=== PATIENT | female | born 1945 | race Caucasian/White ===

== ENCOUNTER 2016-09-07 13:50 | Observation (INO) | payer MEDICARE ==
[2016-09-07] MEDS ORDERED: SODIUM CHLORIDE 0.9% 1,000 ML IV STA (14:06)
--- NOTE | 2016-09-07 14:12 | ED ---
General Adult HPI - General Chief complaint: Shortness of Breath Stated complaint: FB in throat Time Seen by Provider: 09/07/16 13:55 Source: patient, EMS, RN notes reviewed Mode of arrival: EMS Limitations: no limitations - History of Present Illness Initial comments: Patient is a pleasant 71-year-old female presenting to the emergency department with concerns for aspirating a piece of ham. Patient was eating omelette about a half an hour ago. Patient had difficulty with swallowing and believe she aspirated the hand. Patient does complain of cough and a fullness sensation in her lower throat/upper chest. Patient does hear some wheezing which is not normal for her. Patient has had bronchitis otherwise has no history of wheezing. Patient was able to swallow liquids following this without difficulty. - Related Data Home Medications Medication Instructions Recorded Confirmed Atenolol [Tenormin] 50 mg PO DAILY 09/01/15 09/07/16 Atorvastatin Calcium [Lipitor] 20 mg PO DAILY 09/01/15 09/07/16 Cholecalciferol [Vitamin D3] 1,000 unit PO DAILY 09/01/15 09/07/16 Multivitamins, Thera [Multivitamin] 1 tab PO DAILY 09/01/15 09/07/16 Torsemide [Demadex] 5 mg PO DAILY 09/01/15 09/07/16 Vit C/E/Zn/Coppr/Lutein/Zeaxan 1 cap PO BID 09/01/15 09/07/16 [Preservision Areds 2 Softgel] Zolpidem [Ambien] 10 mg PO HS PRN 09/01/15 09/07/16 Aspirin EC [Ecotrin Low Dose] 81 mg PO DAILY 09/07/16 09/07/16 Biotin 5 mg PO DAILY 09/07/16 09/07/16 Calcium Carbonate [Calcium] 600 mg PO HS 09/07/16 09/07/16 Allergies Allergy/AdvReac Type Severity Reaction Status Date / Time No Known Allergies Allergy Verified 09/07/16 14:29 Review of Systems ROS Statement: Those systems with pertinent positive or pertinent negative responses have been documented in the HPI. ROS Other: All systems not noted in ROS Statement are negative. Constitutional: Denies: fever Eyes: Denies: eye pain ENT: Reports: throat pain. Denies: ear pain Respiratory: Reports: dyspnea, wheezes Cardiovascular: Denies: palpitations Endocrine: Denies: fatigue Gastrointestinal: Denies: abdominal pain Genitourinary: Denies: dysuria Musculoskeletal: Denies: back pain Skin: Denies: rash Neurological: Denies: weakness Past Medical History Past Medical History: Hyperlipidemia, Hypertension Additional Past Medical History / Comment(s): kidney stones History of Any Multi-Drug Resistant Organisms: None Reported Additional Past Surgical History / Comment(s): left achilles tendon, eye lid lift Past Psychological History: No Psychological Hx Reported Smoking Status: Never smoker Past Alcohol Use History: Occasional Past Drug Use History: None Reported General Exam Limitations: no limitations General appearance: alert, in no apparent distress Head exam: Present: atraumatic Eye exam: Present: normal appearance, PERRL ENT exam: Present: normal oropharynx Neck exam: Present: normal inspection Respiratory exam: Present: wheezes (Inspiratory wheezes right greater than left) Cardiovascular Exam: Present: regular rate, normal rhythm GI/Abdominal exam: Present: soft. Absent: tenderness Extremities exam: Present: normal inspection. Absent: pedal edema, calf tenderness Neurological exam: Present: alert Psychiatric exam: Present: normal affect, normal mood Skin exam: Absent: rash Course Vital Signs 09/07/16 09/07/16 09/07/16 13:57 14:05 14:48 Temperature 98.4 F Pulse Rate 85 77 Respiratory 16 16 15 Rate Blood Pressure 234/102 206/93 O2 Sat by Pulse 96 95 Oximetry Medical Decision Making - Medical Decision Making Patient reexamined and is somewhat improved. Cough has improved. Patient still has continued wheezing although it remains somewhat mild. Still was a right side. Case was discussed in detail with Dr. Watt from pulmonary who will consult. Case also discussed with Dr. Gomes, who will admit for Dr. Santo - Lab Data Result diagrams: 09/07/16 14:11 09/07/16 14:11 Lab Results 09/07/16 09/07/16 09/07/16 Range/Units 14:11 14:11 14:11 WBC 5.5 (3.8-10.6) k/uL RBC 5.31 (3.80-5.40) m/uL Hgb 16.3 H (11.4-16.0) gm/dL Hct 46.4 H (34.0-46.0) % MCV 87.3 (80.0-100.0) fL MCH 30.7 (25.0-35.0) pg MCHC 35.2 (31.0-37.0) g/dL RDW 13.1 (11.5-15.5) % Plt Count 176 (150-450) k/uL Neutrophils % 57 % Lymphocytes % 31 % Monocytes % 5 % Eosinophils % 3 % Basophils % 0 % Neutrophils # 3.2 (1.3-7.7) k/uL Lymphocytes # 1.7 (1.0-4.8) k/uL Monocytes # 0.3 (0-1.0) k/uL Eosinophils # 0.2 (0-0.7) k/uL Basophils # 0.0 (0-0.2) k/uL PT 10.9 (9.0-12.0) sec INR 1.1 (<1.1) APTT 25.1 (22.0-30.0) sec Sodium 142 (137-145) mmol/L Potassium 3.9 (3.5-5.1) mmol/L Chloride 102 (98-107) mmol/L Carbon Dioxide 27 (22-30) mmol/L Anion Gap 13 mmol/L BUN 17 (7-17) mg/dL Creatinine 0.63 (0.52-1.04) mg/dL Est GFR (MDRD) Af Amer >60 (>60 ml/min/1.73 sqM) Est GFR (MDRD) Non-Af >60 (>60 ml/min/1.73 sqM) Glucose 177 H (74-99) mg/dL Calcium 9.9 (8.4-10.2) mg/dL Total Bilirubin 1.1 (0.2-1.3) mg/dL AST 35 (14-36) U/L ALT 50 (9-52) U/L Alkaline Phosphatase 110 (38-126) U/L Total Protein 7.6 (6.3-8.2) g/dL Albumin 4.4 (3.5-5.0) g/dL - Radiology Data Radiology results: image reviewed (Chest x-ray shows no acute process) Disposition Clinical Impression: Aspiration into airway Disposition: ADMITTED IP TO THIS HOSP
--- NOTE | 2016-09-07 14:27 | XR ---
EXAMINATION TYPE: XR chest 2V DATE OF EXAM: 09/07/2016 2:22 PM COMPARISON: NONE INDICATION: Difficulty breathing TECHNIQUE: Single frontal view of the chest is obtained. FINDINGS: The heart size is normal. The pulmonary vasculature is normal. The lungs are clear. IMPRESSION: 1. No acute pulmonary process.
[2016-09-07] MEDS ORDERED: ATENOLOL 25 MG TAB PO STA (14:32)
[2016-09-07 14:47] LABS: Basophils % (A) 0 %; CH 31.7; CHCM 36.5; Eosinophils # (A) 0.2 k/uL (0-0.7); Eosinophils % (A) 3 %; HCT 46.4 % (34.0-46.0); HDW 3.06; HGB 16.3 gm/dL (11.4-16.0); Luc % (Auto) 4; Lymphocytes # (A) 1.7 k/uL (1.0-4.8); Lymphocytes % (A) 31 %; MCH 30.7 pg (25.0-35.0); MCHC 35.2 g/dL (31.0-37.0); MCV 87.3 fL (80.0-100.0); Mean Platelet Volume 7.4; Monocytes # (A) 0.3 k/uL (0-1.0); Monocytes % (A) 5 %; Neutrophils # (A) 3.2 k/uL (1.3-7.7); Neutrophils % (A) 57 %; RBC 5.31 m/uL (3.80-5.40); RDW 13.1 % (11.5-15.5); WBC 5.5 k/uL (3.8-10.6); WBC (Perox) 5.67
[2016-09-07 14:48] LABS: ALT 50 U/L (9-52); AST 35 U/L (14-36); Alkaline Phosphatase 110 U/L (38-126); Anion Gap 13 mmol/L; Blood Urea Nitrogen 17 mg/dL (7-17); Calcium 9.9 mg/dL (8.4-10.2); Carbon Dioxide 27 mmol/L (22-30); Chloride 102 mmol/L (98-107); Glucose 177 mg/dL (74-99); Non-African American GFR(MDRD) >60 (>60 ml/min/1.73 sqM); Potassium 3.9 mmol/L (3.5-5.1); Sodium 142 mmol/L (137-145); Total Bilirubin 1.1 mg/dL (0.2-1.3); Total Protein 7.6 g/dL (6.3-8.2)
[2016-09-07 14:49] LABS: INR 1.1 (<1.1); Partial Thromboplastin Time 25.1 sec (22.0-30.0); Prothrombin Time 10.9 sec (9.0-12.0)
[2016-09-07] MEDS ORDERED: NALOXONE 0.4 MG/ML 1 ML VIAL IV PRN (15:41)
[2016-09-07] MEDS ORDERED: hydrALAZINE HCL 20 MG/ML 1 ML VIAL IVP STA (15:58)
[2016-09-07] MEDS: SODIUM CHLORIDE 0.9% 1,000 ML IV SCH (16:05)
[2016-09-07] MEDS ORDERED: ZOLPIDEM 10 MG TAB PO PRN (16:30)
--- NOTE | 2016-09-07 18:14 | HP ---
DATE OF ADMISSION: 09/07/2016 Patient is a 71 -year-old came in after ( ). The patient was at ( ) and was eating cheese and ham and she believes she may have aspirated. The patient denied any shortness of breath. The patient was ( ) a little bit which is not normal for her. A chest x-ray essentially within normal limits. The patient was started on antibiotics and admitted to observation under my service although I evaluated the patient in the ER. The patient is hemodynamically stable at this point of time. Patient does not have ( ). Minimal wheeze because of which I recommend discharge the patient but the patient blood pressures are elevated. Because of which, we will check the blood pressure ( ) if the patient's blood pressure continues to be elevated. Patient will be admitted to the hospital and if the patient is admitted, we will get evaluation from pulmonary if bronchoscopy is needed. Patient has fairly good dentures without any dental abscess or dental abnormalities. Patient is although coughing at this point of time. REVIEW OF SYSTEMS: CONSTITUTIONAL: No fever, no malaise, no fatigue. HEENT: No recent visual problems or hearing problems. Denied any sore throat. CARDIOVASCULAR: No chest pain, orthopnea, PND, no palpitations, no syncope. PULMONARY: As described in HPI. GASTROINTESTINAL: No diarrhea, no nausea, no vomiting, no abdominal pain. Normoactive bowel sounds. NEUROLOGICAL: No headaches, no weakness, no numbness. HEMATOLOGICAL: Denies any bleeding or petechiae. GENITOURINARY: Denies any burning micturition, frequency, or urgency. MUSCULOSKELETAL/RHEUMATOLOGICAL: Denies any joint pain, swelling, or any muscle pain. ENDOCRINE: Denies any polyuria or polydipsia. The rest of the 14 point review of systems is negative. Home medications include: 1. Atenolol. 2. Atorvastatin. 3. Cholecalciferol. 4. Vitamin D. 5. Demadex. 6. Ambien. 7. Aspirin. 8. Biotin, 9. Calcium carbonate. ALLERGIES: No known drug allergies. PAST MEDICAL HISTORY: Significant for hypertension, hyperlipidemia, kidney stones in the past. SOCIAL HISTORY: Denied any smoking, alcohol abuse or any drug abuse. FAMILY HISTORY: Denied any family history of hypertension, diabetes mellitus or coronary artery disease in the family. PHYSICAL EXAMINATION: VITAL SIGNS: Temperature 98.4, pulse rate of 85, respiratory rate 16, blood pressure is 234/102, saturating at 95% on room air. GENERAL: The patient is alert and oriented x3, not in any acute distress. Well developed, well nourished. HEENT: Pupils are round and equally reacting to light. EOMI. No scleral icterus. No conjunctival pallor. Normocephalic, atraumatic. No pharyngeal erythema. No thyromegaly. CARDIOVASCULAR: S1 and S2 present. No murmurs, rubs, or gallops. PULMONARY: Minimal expiratory wheezing bilaterally with no crackles are appreciated. ABDOMEN: Soft, nontender, nondistended, normoactive bowel sounds. No palpable organomegaly. MUSCULOSKELETAL: No joint swelling or deformity. EXTREMITIES: No cyanosis, clubbing, or pedal edema. NEUROLOGICAL: Gross neurological examination did not reveal any focal deficits. SKIN: No rashes. LABORATORY DATA: CBC, and BMP are abnormal for elevated hemoglobin of 16.3, chest x-rays within normal limits. ASSESSMENT AND PLAN: 1. Episode of aspiration. I do not believe patient will need antibiotics. Patient is admitted. We will pulmonary ( ) for possible bronchoscopy. Patient will use albuterol for her breathing. Patient denied any history of asthma. Bronchospasm is probably related to aspiration. 2. Highly elevated blood pressures. We will check her blood pressures appropriately and depending on appropriate measurement of blood pressure, we will decide on the treatment although patient will be initiated back on her home medications ( ) staying here. 3. Hyperlipidemia. Continue her home medications.
[2016-09-07 18:37] VITALS: BMI 37.8
[2016-09-07] MEDS: PIPERACILLIN-TAZOBACTAM 3.375 GM in DEXTROSE/WATER 1 50ML.BAG IVPB SCH ×2 (18:42→23:23)
[2016-09-07] MEDS ORDERED: ACETAMINOPHEN TAB 325 MG TAB PO PRN (19:49)
[2016-09-08] MEDS: SODIUM CHLORIDE 0.9% 1,000 ML IV SCH (03:32)
[2016-09-08 06:34] VITALS: RESP 18
--- NOTE | 2016-09-08 08:16 | XR ---
EXAMINATION TYPE: XR chest 2V DATE OF EXAM: 09/08/2016 7:00 AM HISTORY: Dyspnea. REFERENCE: Previous study dated 09/07/2016. FINDINGS: The heart is mildly enlarged. The lungs are clear. Pleural spaces are clear. IMPRESSION: MILD CARDIOMEGALY.
[2016-09-08] MEDS: PIPERACILLIN-TAZOBACTAM 3.375 GM in DEXTROSE/WATER 1 50ML.BAG IVPB SCH (08:32)
[2016-09-08] MEDS ORDERED: FUROSEMIDE 10 MG TAB PO SCH (09:00)
[2016-09-08] MEDS ORDERED: PANTOPRAZOLE 40 MG/10 ML VIAL IV SCH (09:00)
[2016-09-08] MEDS ORDERED: ATENOLOL 50 MG TAB PO SCH (09:00)
[2016-09-08] MEDS ORDERED: ATORVASTATIN 20 MG TAB PO SCH (09:00)
[2016-09-08] MEDS ORDERED: ASPIRIN 81 MG CHEW PO SCH (09:00)
--- NOTE | 2016-09-08 10:32 | P.CNPUL ---
History of Present Illness Consult date: 09/08/16 Reason for consult: dyspnea, cough, other Chief complaint: Possible aspiration History of present illness: This is a 71-year-old female who sees Dr. Pieter Garcia. Apparently was eating breakfast yesterday at [employer] and apparently thought maybe she aspirated a small amount of egg. She apparently had some difficulty breathing and so forth initially coughed a bit. EMS was called. She was brought to the emergency department she was evaluated by Dr. Matt. He was admitted to the hospital for possible aspiration. Currently doing relatively well. Minimal cough. She states she is really pretty feeling pretty well. No major complaints at this time. Not coughing up any phlegm no blood. No fever no chills. No difficulty breathing or anything like that. She apparently has a history of hypertension hyperlipidemia acute bronchitis episodes but no history of any chronic lung disease kidney stones. Again she is a lifelong nonsmoker. Review of Systems A 12 point review of system is positive for minimal cough. She is not feeling short of breath or having any significant respiratory issues. No hemoptysis. No fever no chills. The rest of the 12 point review of system is unremarkable. 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 History of Any Multi-Drug Resistant Organisms: None Reported Additional Past Surgical History / Comment(s): left achilles tendon repair, eye lid lift Past Anesthesia/Blood Transfusion Reactions: No Reported Reaction Past Psychological History: No Psychological Hx Reported Smoking Status: Never smoker Past Alcohol Use History: Occasional Past Drug Use History: None Reported Medications and Allergies Home Medications Medication Instructions Recorded Confirmed Type Atenolol [Tenormin] 50 mg PO DAILY 09/01/15 09/07/16 History Atorvastatin Calcium [Lipitor] 20 mg PO DAILY 09/01/15 09/07/16 History Cholecalciferol [Vitamin D3] 1,000 unit PO DAILY 09/01/15 09/07/16 History Multivitamins, Thera [Multivitamin] 1 tab PO DAILY 09/01/15 09/07/16 History Torsemide [Demadex] 5 mg PO DAILY 09/01/15 09/07/16 History Vit C/E/Zn/Coppr/Lutein/Zeaxan 1 cap PO BID 09/01/15 09/07/16 History [Preservision Areds 2 Softgel] Zolpidem [Ambien] 10 mg PO HS PRN 09/01/15 09/07/16 History Aspirin EC [Ecotrin Low Dose] 81 mg PO DAILY 09/07/16 09/07/16 History Biotin 5 mg PO DAILY 09/07/16 09/07/16 History Calcium Carbonate [Calcium] 600 mg PO HS 09/07/16 09/07/16 History Allergies Allergy/AdvReac Type Severity Reaction Status Date / Time No Known Allergies Allergy Verified 09/07/16 14:29 Physical Exam Osteopathic Statement: *. No significant issues noted on an osteopathic structural exam other than those noted in the History and Physical/Consult. Vitals: Vital Signs Temp Pulse Pulse Resp BP BP BP 09/08/16 08:00 67 18 09/08/16 07:40 98 F 67 18 198/81 09/08/16 04:00 68 18 196/84 09/08/16 03:45 68 16 09/08/16 00:00 72 16 166/62 09/07/16 20:00 98.7 F 68 16 188/78 198/78 09/07/16 18:45 76 18 09/07/16 17:45 98.4 F 76 18 219/96 09/07/16 17:05 71 15 160/90 09/07/16 15:55 73 16 210/90 Pulse Ox 09/08/16 08:00 09/08/16 07:40 100 09/08/16 04:00 98 09/08/16 03:45 09/08/16 00:00 95 09/07/16 20:00 95 09/07/16 18:45 09/07/16 17:45 96 09/07/16 17:05 97 09/07/16 15:55 97 Intake and Output 09/07/16 09/08/16 09/08/16 22:59 06:59 14:59 Intake Total 200 250 Balance 200 250 Intake: Intake, IV Titration 50 50 Amount Piperacillin-Tazobactam 3 50 50 .375 gm In Dextrose/Water 1 50ml.bag @ 12.5 mls/hr IVPB Q8HR [facility] Rx#: [id number] Oral 150 200 Other: Voiding Method Toilet Toilet Toilet # Voids 1 2 Weight 93.9 kg No acute distress, oriented 3. HEENT examination is grossly unremarkable. Mucous membranes are moist. There are no oral lesions. Neck supple. Full range of motion. No adenopathy. No thyromegaly. Neck veins are flat. No stridor. Cardiovascular examination reveals regular rhythm rate. S1-S2 normal. No S3- S4 or murmur. Lungs reveal a few scattered very mild expiratory wheezes. No rhonchi. Breath sounds equal bilaterally. Abdomen soft bowel sounds are heard. Extremities are intact. Results - Laboratory Findings CBC and BMP: 09/07/16 14:11 09/07/16 14:11 PT/INR, D-dimer PT 10.9 sec (9.0-12.0) 09/07/16 14:11 INR 1.1 (<1.1) 09/07/16 14:11 - Diagnostic Findings Chest x-ray: image reviewed (Both chest x-rays appeared normal.) Assessment and Plan (1) Aspiration into airway Status: Acute Plan: Plan This 71-year-old female was doing well. From my perspective she can be discharged home. Really does not need any antibiotics recently. No need for bronchoscopy at this time. She should follow-up with her primary doctor. She should develop any respiratory complaints, she should come back to the emergency department. Again no additional recommendations are made. Her chest x-rays were normal 2. Time with Patient: Greater than 30
[2016-09-08 11:53] VITALS: BP 174/92; PULSE 65; TEMP 98.9
--- NOTE | 2016-09-09 11:32 | DS ---
DATE OF ADMISSION: 09/07/2016 DATE OF DISCHARGE: 09/08/2016 The patient is a 71-year-old admitted secondary to an aspiration of food into the bronchus. Patient has minimal wheezing. I will go ahead and give her a Medrol Dosepak short course for any inflammation secondary to the food particles. Patient will not need an antibiotic. Patient has elevated blood pressures. I asked her to check her blood pressure at home and I counseled her regarding the appropriate way to check the blood pressure and take is to primary doctor, Dr. Santo, who can make the decision according to her home blood pressure monitoring whether to start her on new antihypertensives or not. Apart from Medrol Dosepak, no other changes in medications are being made and patient was seen and examined on the day of discharge. Vitals are stable. PHYSICAL EXAMINATION: GENERAL: The patient is alert and oriented x3, not in any acute distress. Well developed, well nourished. HEENT: Pupils are round and equally reacting to light. EOMI. No scleral icterus. No conjunctival pallor. Normocephalic, atraumatic. No pharyngeal erythema. No thyromegaly. CARDIOVASCULAR: S1 and S2 present. No murmurs, rubs, or gallops. LUNG EXAMINATION: Minimal wheeze in the right lower lung field, that is where probably the aspirated food particle may have went. ABDOMEN: Soft, nontender, nondistended, normoactive bowel sounds. No palpable organomegaly. MUSCULOSKELETAL: No joint swelling or deformity. EXTREMITIES: No cyanosis, clubbing, or pedal edema. NEUROLOGICAL: Gross neurological examination did not reveal any focal deficits. SKIN: No rashes. ASSESSMENT AND PLAN: 1. An episode of aspiration. 2. Hypertension. 3. Hyperlipidemia. PLAN: As mentioned above, patient was seen and examined on the day of discharge. Vitals are stable. Patient will follow with Dr. Pieter Santo in about 3 to 7 days. Activity as tolerated. Cardiac diet.
== END 2016-09-08 14:15 | disposition home or self-care (01) ==
LOC: EC 13:50 → 3OBS 15:41
PROVIDERS: ADMIT Internal Medicine; ATTEND Internal Medicine
DX: T17.520A Food in bronchus causing asphyxiation, initial encounter (principal); J98.01 Acute bronchospasm; X58.XXXA Exposure to other specified factors, initial encounter; E78.5 Hyperlipidemia, unspecified; I10 Essential (primary) hypertension; Z79.899 Other long term (current) drug therapy; Z79.82 Long term (current) use of aspirin
CPT/HCPCS: 36415; 80053; 85025; 85610; 85730; 71020 ×2; 99285; 96375; 96361 ×2; G0378 ×2; J0360; J2543 ×2; C9113; 96365; 96366

== ENCOUNTER 2016-11-03 10:23 | Inpatient (IN) | payer MEDICARE ==
--- NOTE | 2016-11-03 10:57 | ED ---
General Adult HPI - General Chief complaint: Shortness of Breath Stated complaint: AFIB, SOB Time Seen by Provider: 11/03/16 10:31 Source: patient, family, RN notes reviewed Mode of arrival: wheelchair Limitations: no limitations - History of Present Illness Initial comments: Patient is a pleasant 71-year-old female presenting to the emergency department complaining of cough. Symptoms been present for several days. Patient went to [facility] where they were concerned about atrial flutter and advise patient come to the emergency Department. No history of atrial flutter previously. Patient does have a family history of heart disease. Patient does have some shortness of breath with exertion only. No chest pain. No palpitations. Cough with occasional yellow sputum. No fever. - Related Data Home Medications Medication Instructions Recorded Confirmed Atenolol [Tenormin] 50 mg PO DAILY 09/01/15 11/03/16 Atorvastatin Calcium [Lipitor] 10 mg PO DAILY 09/01/15 11/03/16 Multivitamins, Thera [Multivitamin] 1 tab PO DAILY 09/01/15 11/03/16 Vit C/E/Zn/Coppr/Lutein/Zeaxan 1 cap PO BID 09/01/15 11/03/16 [Preservision Areds 2 Softgel] Aspirin EC [Ecotrin Low Dose] 81 mg PO DAILY 09/07/16 11/03/16 Biotin 5 mg PO DAILY 09/07/16 11/03/16 Albuterol Sulfate [Proair Hfa] 2 puff INHALATION RT-Q6H PRN 11/03/16 11/03/16 Calcium Carbonate/Vitamin D3 1 tab PO DAILY 11/03/16 11/03/16 [Calcium 600-Vit D3 200 Tablet] Carboxymethylcellulose Sodium 1 drop BOTH EYES DAILY PRN 11/03/16 11/03/16 [Refresh Tears] Fluticasone Nasal [place] [Flonase 2 spr EA NOSTRIL DAILY 11/03/16 11/03/16 Nasal [place]] Torsemide [Demadex] 20 mg PO DAILY 11/03/16 11/03/16 traZODone HCL 50 mg PO HS PRN 11/03/16 11/03/16 Allergies Allergy/AdvReac Type Severity Reaction Status Date / Time No Known Allergies Allergy Verified 11/03/16 11:10 Review of Systems ROS Statement: Those systems with pertinent positive or pertinent negative responses have been documented in the HPI. ROS Other: All systems not noted in ROS Statement are negative. Constitutional: Denies: fever Eyes: Denies: eye pain ENT: Denies: ear pain Respiratory: Reports: cough, dyspnea Cardiovascular: Denies: chest pain, palpitations Endocrine: Denies: fatigue Gastrointestinal: Denies: abdominal pain Genitourinary: Denies: dysuria Musculoskeletal: Denies: back pain Skin: Denies: rash Neurological: Denies: weakness 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 History of Any Multi-Drug Resistant Organisms: None Reported Additional Past Surgical History / Comment(s): left achilles tendon repair, eye lid lift Past Anesthesia/Blood Transfusion Reactions: No Reported Reaction Past Psychological History: No Psychological Hx Reported Smoking Status: Never smoker Past Alcohol Use History: Occasional Past Drug Use History: None Reported General Exam Limitations: no limitations General appearance: alert, in no apparent distress Head exam: Present: atraumatic Eye exam: Present: normal appearance, PERRL ENT exam: Present: normal oropharynx Neck exam: Present: normal inspection Respiratory exam: Present: rales (Mild bilateral bases) Cardiovascular Exam: Present: irregular rhythm Expanded Peripheral pulses: 2+: Radial (R), Radial (L), Posterior Tibialis (R), Posterior Tibialis (L) GI/Abdominal exam: Present: soft. Absent: tenderness Extremities exam: Present: normal inspection. Absent: pedal edema, calf tenderness Neurological exam: Present: alert Psychiatric exam: Present: normal affect, normal mood Skin exam: Absent: rash Course Vital Signs 11/03/16 11/03/16 11/03/16 10:34 11:30 12:59 Temperature 97.7 F 97.1 F L Pulse Rate 103 H 96 97 Respiratory 20 18 18 Rate Blood Pressure 153/85 160/94 159/97 O2 Sat by Pulse 95 95 96 Oximetry 11/03/16 13:36 Temperature Pulse Rate 144 H Respiratory 20 Rate Blood Pressure 145/97 O2 Sat by Pulse 95 Oximetry - Reevaluation(s) Reevaluation #1: 11/03/16 13:55 EKG #2 shows tachycardia at 146 with narrow complex. QRS 86. QT 314. QTC 489. Normal axis. Normal QRS. No acute ST change. EKG Findings - EKG Comments: EKG Findings:: Atrial flutter with rate of 85. QRS 98. QT 348. QTC 414. Normal axis. Normal QRS. Normal ST-T. Medical Decision Making - Medical Decision Making Patient reevaluated and updated several times. Heart rate has now increased to 146. Patient was considering refusing admission however is now agreeable. Case discussed in detail with Dr. Perdue, who will admit for Dr. Beckett,. Patient will need to be started on Cardizem for tachycardia with atrial fibrillation. IV heparin will also be started for anticoagulation. Cardiology will be consulted. Admission orders written. - Lab Data Result diagrams: 11/03/16 11:02 11/03/16 11:02 Lab Results 11/03/16 11/03/16 11/03/16 Range/Units 11:02 11:02 11:02 WBC 6.5 (3.8-10.6) k/uL RBC 4.83 (3.80-5.40) m/uL Hgb 15.2 (11.4-16.0) gm/dL Hct 42.8 (34.0-46.0) % MCV 88.6 (80.0-100.0) fL MCH 31.4 (25.0-35.0) pg MCHC 35.4 (31.0-37.0) g/dL RDW 13.6 (11.5-15.5) % Plt Count 176 (150-450) k/uL Neutrophils % 66 % Lymphocytes % 24 % Monocytes % 6 % Eosinophils % 2 % Basophils % 0 % Neutrophils # 4.3 (1.3-7.7) k/uL Lymphocytes # 1.5 (1.0-4.8) k/uL Monocytes # 0.4 (0-1.0) k/uL Eosinophils # 0.1 (0-0.7) k/uL Basophils # 0.0 (0-0.2) k/uL PT (9.0-12.0) sec INR (<1.1) APTT (22.0-30.0) sec Sodium 138 (137-145) mmol/L Potassium 3.7 (3.5-5.1) mmol/L Chloride 100 (98-107) mmol/L Carbon Dioxide 26 (22-30) mmol/L Anion Gap 12 mmol/L BUN 16 (7-17) mg/dL Creatinine 0.63 (0.52-1.04) mg/dL Est GFR (MDRD) Af Amer >60 (>60 ml/min/1.73 sqM) Est GFR (MDRD) Non-Af >60 (>60 ml/min/1.73 sqM) Glucose 249 H (74-99) mg/dL Calcium 9.9 (8.4-10.2) mg/dL Magnesium 1.8 (1.6-2.3) mg/dL Total Bilirubin 1.3 (0.2-1.3) mg/dL AST 53 H (14-36) U/L ALT 61 H (9-52) U/L Alkaline Phosphatase 97 (38-126) U/L Total Creatine Kinase 45 (30-135) U/L CK-MB (CK-2) <0.2 (0.0-2.4) ng/mL CK-MB (CK-2) Rel Index Troponin I <0.012 (0.000-0.034) ng/mL NT-Pro-B Natriuret Pep pg/mL Total Protein 6.6 (6.3-8.2) g/dL Albumin 3.9 (3.5-5.0) g/dL TSH 0.079 L (0.465-4.680) mIU/L Free T4 1.29 (0.78-2.19) ng/dL Free T3 pg/mL 4.0 (2.8-5.3) pg/ml 11/03/16 11/03/16 Range/Units 11:02 11:02 WBC (3.8-10.6) k/uL RBC (3.80-5.40) m/uL Hgb (11.4-16.0) gm/dL Hct (34.0-46.0) % MCV (80.0-100.0) fL MCH (25.0-35.0) pg MCHC (31.0-37.0) g/dL RDW (11.5-15.5) % Plt Count (150-450) k/uL Neutrophils % % Lymphocytes % % Monocytes % % Eosinophils % % Basophils % % Neutrophils # (1.3-7.7) k/uL Lymphocytes # (1.0-4.8) k/uL Monocytes # (0-1.0) k/uL Eosinophils # (0-0.7) k/uL Basophils # (0-0.2) k/uL PT 11.0 (9.0-12.0) sec INR 1.1 (<1.1) APTT 23.6 (22.0-30.0) sec Sodium (137-145) mmol/L Potassium (3.5-5.1) mmol/L Chloride (98-107) mmol/L Carbon Dioxide (22-30) mmol/L Anion Gap mmol/L BUN (7-17) mg/dL Creatinine (0.52-1.04) mg/dL Est GFR (MDRD) Af Amer (>60 ml/min/1.73 sqM) Est GFR (MDRD) Non-Af (>60 ml/min/1.73 sqM) Glucose (74-99) mg/dL Calcium (8.4-10.2) mg/dL Magnesium (1.6-2.3) mg/dL Total Bilirubin (0.2-1.3) mg/dL AST (14-36) U/L ALT (9-52) U/L Alkaline Phosphatase (38-126) U/L Total Creatine Kinase (30-135) U/L CK-MB (CK-2) (0.0-2.4) ng/mL CK-MB (CK-2) Rel Index Troponin I (0.000-0.034) ng/mL NT-Pro-B Natriuret Pep 277 pg/mL Total Protein (6.3-8.2) g/dL Albumin (3.5-5.0) g/dL TSH (0.465-4.680) mIU/L Free T4 (0.78-2.19) ng/dL Free T3 pg/mL (2.8-5.3) pg/ml - Radiology Data Radiology results: image reviewed (Chest x-ray shows no acute process.) Critical Care Time Critical Care Time: Yes Total Critical Care Time: 35 Disposition Clinical Impression: Atrial flutter with rapid ventricular response Disposition: ADMITTED IP TO THIS HOSP
[2016-11-03 11:16] LABS: Basophils % (A) 0 %; CH 31.5; CHCM 35.7; Eosinophils # (A) 0.1 k/uL (0-0.7); Eosinophils % (A) 2 %; HCT 42.8 % (34.0-46.0); HDW 3.23; HGB 15.2 gm/dL (11.4-16.0); Luc # (Auto) 0.17; Luc % (Auto) 3; Lymphocytes # (A) 1.5 k/uL (1.0-4.8); Lymphocytes % (A) 24 %; MCH 31.4 pg (25.0-35.0); MCHC 35.4 g/dL (31.0-37.0); MCV 88.6 fL (80.0-100.0); Mean Platelet Volume 7.8; Monocytes # (A) 0.4 k/uL (0-1.0); Monocytes % (A) 6 %; Neutrophils # (A) 4.3 k/uL (1.3-7.7); Neutrophils % (A) 66 %; RBC 4.83 m/uL (3.80-5.40); RDW 13.6 % (11.5-15.5); WBC 6.5 k/uL (3.8-10.6); WBC (Perox) 6.52
--- NOTE | 2016-11-03 11:20 | XR ---
EXAMINATION TYPE: XR chest 2V DATE OF EXAM: 11/03/2016 11:17 AM COMPARISON: NONE TECHNIQUE: PA and lateral views submitted. HISTORY: cough FINDINGS: The lungs are clear and there is no pneumothorax, pleural effusion, or focal pneumonia. Arthropathy of the shoulders noted. Hyperinflation suggests COPD and there is mild cardiomegaly. Mild degenerati ve change of the spine. IMPRESSION: 1. No acute process.
[2016-11-03 11:26] LABS: ALT 61 U/L (9-52); AST 53 U/L (14-36); Alkaline Phosphatase 97 U/L (38-126); Anion Gap 12 mmol/L; Blood Urea Nitrogen 16 mg/dL (7-17); Calcium 9.9 mg/dL (8.4-10.2); Carbon Dioxide 26 mmol/L (22-30); Chloride 100 mmol/L (98-107); Glucose 249 mg/dL (74-99); Magnesium 1.8 mg/dL (1.6-2.3); Non-African American GFR(MDRD) >60 (>60 ml/min/1.73 sqM); Potassium 3.7 mmol/L (3.5-5.1); Sodium 138 mmol/L (137-145); Total Bilirubin 1.3 mg/dL (0.2-1.3); Total Protein 6.6 g/dL (6.3-8.2)
[2016-11-03 11:43] LABS: INR 1.1 (<1.1); Partial Thromboplastin Time 23.6 sec (22.0-30.0)
[2016-11-03 11:54] LABS: Creatine Kinase 45 U/L (30-135)
[2016-11-03 12:07] LABS: Creatine Kinase MB <0.2 ng/mL (0.0-2.4); Troponin I <0.012 ng/mL (0.000-0.034)
[2016-11-03] MEDS ORDERED: ALPRAZolam 0.25 MG TAB PO PRN (13:57)
[2016-11-03] MEDS ORDERED: HEPARIN SODIUM,PORCINE 5,000 UNIT/ML 1 ML VIAL IV PRN (13:57)
[2016-11-03] MEDS ORDERED: HEPARIN SODIUM,PORCINE 5,000 UNIT/ML 1 ML VIAL IV ONE (13:57)
[2016-11-03] MEDS: HEPARIN SODIUM,PORCINE/D5W PMX 25,000 UNIT in DEXTROSE/WATER 1 500ML.BAG IV SCH (14:10)
[2016-11-03] MEDS: DILTIAZEM 125 MG in SODIUM CHLORIDE 0.9% 100 ML IV ONE (14:14)
[2016-11-03] MEDS ORDERED: FUROSEMIDE 10 MG/ML 2 ML VIAL IV STA (15:51)
--- NOTE | 2016-11-03 15:51 | P.CRDCN ---
History of Present Illness Consult date: 11/03/16 Requesting physician: Pieter Santo Consult reason: atrial fibrillation Chief complaint: Cough and exertional shortness of breath History of present illness: This is a pleasant 71-year-old female with history of hypertension, hyperlipidemia, borderline diabetes, who presented to the hospital from the walk -in clinic. According to the patient, she's been experiencing a hockey cough for the past few days, worse at night, and she also states that when she exerts herself physically she has noticed shortness of breath. She denies any chest discomfort, she has had no palpitations or heart racing according to her. Patient went to the walk-in clinic for evaluation of her cough, EKG was performed, patient was sent to the emergency room for admission. EKG performed in her doctor's office is unavailable, but the EKG performed on arrival here showed atrial fibrillation. Subsequent EKG showed A. fib with RVR, patient was initiated on IV heparin along with IV Cardizem. Patient denies any prior history of arrhythmias. Denies excessive caffeine intake. Blood pressure on arrival 152/80 with a heart rate of 103. Blood pressure at the time of my examination at 166/114, heart rate 140s. CBC normal. No edema 38, potassium 3.7, BUN 16, creatinine 0.6. AST on arrival 53, ALT 61. Troponin 0.012. BNP 277. TSH 0.079, free T4 1.29, Free T3 4.0. 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 History of Any Multi-Drug Resistant Organisms: None Reported Additional Past Surgical History / Comment(s): left achilles tendon repair, eye lid lift Past Anesthesia/Blood Transfusion Reactions: No Reported Reaction Past Psychological History: No Psychological Hx Reported Smoking Status: Never smoker Past Alcohol Use History: Occasional Past Drug Use History: None Reported Medications and Allergies Home Medications Medication Instructions Recorded Confirmed Type Atenolol [Tenormin] 50 mg PO DAILY 09/01/15 11/03/16 History Atorvastatin Calcium [Lipitor] 10 mg PO DAILY 09/01/15 11/03/16 History Multivitamins, Thera [Multivitamin] 1 tab PO DAILY 09/01/15 11/03/16 History Vit C/E/Zn/Coppr/Lutein/Zeaxan 1 cap PO BID 09/01/15 11/03/16 History [Preservision [place]reds 2 Softgel] Aspirin EC [Ecotrin Low Dose] 81 mg PO DAILY 09/07/16 11/03/16 History Biotin 5 mg PO DAILY 09/07/16 11/03/16 History Albuterol Sulfate [Proair Hfa] 2 puff INHALATION RT-Q6H PRN 11/03/16 11/03/16 History Calcium Carbonate/Vitamin D3 1 tab PO DAILY 11/03/16 11/03/16 History [Calcium 600-Vit D3 200 Tablet] Carboxymethylcellulose Sodium 1 drop BOTH EYES DAILY PRN 11/03/16 11/03/16 History [Refresh Tears] Fluticasone Nasal [place] [Flonase 2 spr EA NOSTRIL DAILY 11/03/16 11/03/16 History Nasal [place]] Torsemide [Demadex] 20 mg PO DAILY 11/03/16 11/03/16 History traZODone HCL 50 mg PO HS PRN 11/03/16 11/03/16 History Allergies Allergy/AdvReac Type Severity Reaction Status Date / Time No Known Allergies Allergy Verified 11/03/16 11:10 Physical Exam Vitals: Vital Signs Temp Pulse Resp BP Pulse Ox 11/03/16 14:43 97.1 F L 145 H 18 167/114 98 11/03/16 14:17 145 H 155/109 PHYSICAL EXAMINATION: HEENT: Head is atraumatic, normocephalic. Pupils equal, round. Neck is supple. There is elevated jugular venous pressure. HEART EXAMINATION: Heart S1 and S2 irregularly irregular CHEST EXAMINATION: Lungs are clear with diminished air entry to bilateral bases. ABDOMEN: Soft, obese, nontender. Bowel sounds are heard. No organomegaly noted. EXTREMITIES: 2+ peripheral pulses with trace evidence of peripheral edema and no calf tenderness noted. NEUROLOGIC patient is awake, alert and oriented -3. . Results 11/03/16 11:02 11/03/16 11:02 Current Medications Generic Name Dose Route Start Last Admin Trade Name Freq PRN Reason Stop Dose Admin Alprazolam 0.25 mg 11/03/16 13:57 Xanax PO QID PRN Anxiety Aspirin 325 mg 11/04/16 09:00 Aspirin PO DAILY JUAN Heparin Sodium (Porcine) 0 unit 11/03/16 13:57 Heparin IV Q6HR PRN Low PTT Protocol Diltiazem HCl 125 mg/ Sodium 125 mls @ 5 mls/hr 11/03/16 13:59 11/03/16 14:14 Chloride IV 11/04/16 13:58 5 mg/hr .Q24H ONE 5 mls/hr 5 MG/HR Administration Heparin Sodium/Dextrose 25,000 500 mls @ 19.95 mls/hr 11/03/16 14:00 14:10 unit/ IV Solution IV 11 units/kg/hr .Q24H JUAN 19.95 mls/hr Protocol Administration 11 UNITS/KG/HR EKG Interpretations (text) EKG shows atrial fibrillation with a rapid ventricular response. Assessment and Plan Plan: Assessment and Plan #1 atrial fibrillation with rapid ventricular response, unsure of duration. Currently on IV Cardizem and heparin drip. #2 hypertension #3 borderline diabetes #4 hyperlipidemia #5 hyperthyroidism, TSH 0.079. Untreated. Plan Will obtain an echocardiogram with Doppler study. Decrease aspirin to 81 mg daily. Resume the patient's Lipitor, Tenormin, but we will increase the dose of Tenormin to 75 mg daily. We will give the patient one time dose of 20 mg IV Lasix then reinitiate her home dose of Demadex. We'll also check to see if the patient has coverage for one of the newer anticoagulants, in the meantime continue IV heparin. Further recommendations to follow. DNP note has been reviewed, I agree with a documented findings and plan of care. Patient was seen and examined.
[2016-11-03] MEDS ORDERED: ASPIRIN 81 MG CHEW PO ONE (16:00)
[2016-11-03] MEDS: ATENOLOL 25 MG TAB PO SCH (16:27)
[2016-11-03] MEDS: TORSEMIDE 20 MG TAB PO SCH (16:28)
[2016-11-03 17:56] LABS: Creatine Kinase 46 U/L (30-135)
[2016-11-03 18:09] LABS: Creatine Kinase MB 1.2 ng/mL (0.0-2.4); Troponin I <0.012 ng/mL (0.000-0.034)
[2016-11-03] MEDS ORDERED: ALBUTEROL NEBULIZED 2.5 MG/3 ML INHALATION PRN (18:42)
[2016-11-03] MEDS ORDERED: ARTIFICIAL TEARS-HYPROMELLOSE DROPS 15 ML BTL BOTH EYES PRN (18:42)
--- NOTE | 2016-11-03 19:31 | US ---
EXAMINATION TYPE: US venous doppler duplex LE BI DATE OF EXAM: 11/03/2016 6:44 PM COMPARISON: NONE CLINICAL HISTORY: dvt. Bilateral leg swelling, no history of DVT per patient. currently taking blood thinners- per patient SIDE PERFORMED: Bilateral TECHNIQUE: The lower extremity deep venous system is examined utilizing real time linear array sonog paddy with graded compression, doppler sonography and color-flow sonography. VESSELS IMAGED: External Iliac Vein (EIV) Common Femoral Vein Deep Femoral Vein Greater Saphenous Vein * Femoral Vein Popliteal Vein Small Saphenous Vein * Proximal Calf Veins (* superficial vessels) Right Leg: Negative for DVT Left Leg: Negative for DVT Grayscale, color doppler, spectral doppler imaging performed of the deep veins of the lower extremit ies. There is normal flow, compressibility, vascular waveforms bilaterally. IMPRESSION: No ultrasound evidence for acute DVT in either lower extremity.
[2016-11-03 20:08] LABS: Partial Thromboplastin Time 42.2 sec (22.0-30.0)
[2016-11-03] MEDS ORDERED: TEMAZEPAM 15 MG CAP PO PRN (21:00)
[2016-11-03] MEDS ORDERED: traZODone HCL 50 MG TAB PO PRN (21:00)
[2016-11-03 21:19] LABS: Glucose,Whole Blood 239 mg/dL (75-99)
[2016-11-03] MEDS: INSULIN LISPRO (humaLOG) 300 UNIT/3 ML VIAL SQ SCH (21:35)
[2016-11-03 23:06] LABS: Creatine Kinase 49 U/L (30-135)
[2016-11-03 23:19] LABS: Creatine Kinase MB 1.4 ng/mL (0.0-2.4); Troponin I <0.012 ng/mL (0.000-0.034)
[2016-11-04 00:49] LABS: Hemoglobin A1C 8.2 % (4.2-6.1)
[2016-11-04 02:59] LABS: Basophils # (A) 0.1 k/uL (0-0.2); Basophils % (A) 1 %; CH 31.9; CHCM 34.7; Eosinophils # (A) 0.2 k/uL (0-0.7); Eosinophils % (A) 3 %; HCT 43.4 % (34.0-46.0); HDW 3.12; HGB 14.6 gm/dL (11.4-16.0); Luc # (Auto) 0.17; Luc % (Auto) 3; Lymphocytes # (A) 2.5 k/uL (1.0-4.8); Lymphocytes % (A) 38 %; MCH 31.2 pg (25.0-35.0); MCHC 33.8 g/dL (31.0-37.0); MCV 92.5 fL (80.0-100.0); Mean Platelet Volume 7.5; Monocytes # (A) 0.4 k/uL (0-1.0); Monocytes % (A) 5 %; Neutrophils # (A) 3.2 k/uL (1.3-7.7); Neutrophils % (A) 50 %; RBC 4.69 m/uL (3.80-5.40); RDW 14.1 % (11.5-15.5); WBC 6.5 k/uL (3.8-10.6); WBC (Perox) 6.22
[2016-11-04 04:10] LABS: ALT 67 U/L (9-52); AST 50 U/L (14-36); Alkaline Phosphatase 102 U/L (38-126); Anion Gap 14 mmol/L; Blood Urea Nitrogen 15 mg/dL (7-17); Calcium 9.7 mg/dL (8.4-10.2); Carbon Dioxide 23 mmol/L (22-30); Chloride 103 mmol/L (98-107); Cholesterol 140 mg/dL (<200); Glucose 194 mg/dL (74-99); HDL Cholesterol 36 mg/dL (40-60); Non-African American GFR(MDRD) >60 (>60 ml/min/1.73 sqM); Potassium 3.5 mmol/L (3.5-5.1); Sodium 140 mmol/L (137-145); Total Bilirubin 1.1 mg/dL (0.2-1.3); Total Protein 6.3 g/dL (6.3-8.2); Triglycerides 291 mg/dL (<150)
[2016-11-04 06:05] LABS: Glucose,Whole Blood 225 mg/dL (75-99)
[2016-11-04] MEDS: INSULIN LISPRO (humaLOG) 300 UNIT/3 ML VIAL SQ SCH ×4 (07:02→21:00)
--- NOTE | 2016-11-04 07:31 | HP ---
DATE OF ADMISSION: DATE OF SERVICE: 11/03/2016 CHIEF COMPLAINT: Shortness of breath. HISTORY OF PRESENT ILLNESS: This 71-year-old woman with the past medical history of hypertension, hyperlipidemia, history of kidney stones, and basal cell carcinoma, history of left Achilles tendon repair, history of left ankle swelling being followed by Dr. Santo in the outpatient setting, not feeling well over the past several days. Patient has shortness of breath on activity. Patient went to the urgent care center. The patient was found to have atrial flutter with rapid ventricular patient. The patient was transferred to [facility] ER and admitted for further evaluation and treatment. The patient follows with Dr. Santo in the outpatient setting. Cardiology evaluation in progress. The EKG showed atrial flutter, fibrillation with a fast ventricular rate and patient admitted for further evaluation and treatment. The patient is on IV Cardizem at this time. Patient also on IV heparin also. A repeat EKG showed the heart rate has slowed down, but definitely atrial fibrillation with fast ventricular rate. There is no history of any fever, rigors, chills. No history of headache, loss of consciousness or seizures. No history of any chest pain. The patient had stress test about several years ago, which was reported negative. PAST MEDICAL HISTORY: History of hypertension, hyperlipidemia, history of nephrolithiasis, history of left Achilles tendon repair. Medications prior to admission include: 1. Demadex 20 mg p.o. daily. 2. Refresh Tears one drop both eyes daily. 3. ProAir HFA 2 puffs q.6 p.r.n. 4. Trazodone 50 mg p.r.n. 5. Flonase 2 sprays daily. 6. Calcium carbonate 1 p.o. daily. 7. Lipitor 10 mg daily. 8. Tenormin 50 mg daily. 9. Ecotrin 81 mg p.o. daily. 10. Multivitamin 1 p.o. daily. 11. Vitamin C, Zinc, E 1 capsule p.o. b.i.d. Allergies are none. FAMILY HISTORY: History of congestive heart failure in the family. SOCIAL HISTORY: No history of smoking, no history of alcohol intake. REVIEW OF SYSTEMS: ENT: No diminished vision. CARDIOVASCULAR: As mentioned earlier. RESPIRATORY: As mentioned earlier. GI: No nausea. : No dysuria. NERVOUS SYSTEM: No numbness or weakness. ALLERGIES/IMMUNOLOGICAL: No asthma. MUSCULOSKELETAL: As mentioned earlier. HEMATOLOGY/ONCOLOGY: No history of anemia. ENDOCRINE: No history of diabetes mellitus, hyperthyroidism.. CONSTITUTIONAL: As mentioned earlier. DERMATOLOGY: Negative. RHEUMATOLOGY: Negative. PSYCHIATRY: As mentioned earlier. PHYSICAL EXAMINATION: The patient is alert and oriented and x3. Pulse is 147 irregular. Blood pressure is 156/96, respirations 16, temperature 98.2, pulse ox 94% on 2 L. HEENT: Conjunctivae normal. Oral mucosa moist. NECK: No jugular venous distention. No carotid bruit. No lymph node enlargement. CARDIOVASCULAR: S1 and S2, muffled. Tachycardiac, irregular. No murmur, no . RESPIRATORY: Breath sounds diminished at the bases. No rhonchi, no crackles. ABDOMEN: Soft, obese, nontender. No mass palpable. LEGS: Minimal edema, left more than right. No tenderness. NERVOUS SYSTEM: Higher function as mentioned. Moves all 4 limbs. No focal motor or sensory deficits. LYMPHATICS: No lymphadenopathy of neck, axillae or groin. SKIN: No ulcers, rashes or bleeding. Labs are glucose 249, AST 53, ALT 61. TSH 0.79, but however free T4 and free T3 are normal. ASSESSMENT: 1. Atrial fibrillation with a fast ventricular rate. 2. Increased AST, ALT, possible acute mild hepatitis. 3. Increased random blood sugar, possibly diabetes mellitus type 2. 4. Hypertension. 5. Hyperlipidemia. 6. History of nephrolithiasis . 7. History of basal cell carcinoma, removed from the right eye. 8. Left Achilles tendon repair. 9. Obesity, body mass index of 36.6. 10. FULL CODE. 11. Decreased TSH with normal free T4, possible sick euthyroid syndrome. RECOMMENDATIONS AND DISCUSSION: This 71-year-old woman presented with multiple complex medical issues. Will monitor the patient closely. Continue the current medications. Continue symptomatic treatment. Continue with IV heparin. Continue with Cardizem. I would also recommend a D-dimer. If it is elevated, I would also recommend spiral CAT scan. Otherwise, ultrasound of the leg may be ordered to rule out the possibility of DVT. Guarded prognosis because of multiple complex medical issues. Will follow closely with Cardiology. A 2-D echo will be ordered. Patient may also benefit from a stress test probably in the outpatient setting. Otherwise, currently the troponins are negative and further recommendations to follow. Discussed with the patient, understands. Further recommendations to follow. The patient also had possibly some mild sick euthyroid syndrome also. MTDD
[2016-11-04] MEDS: DILTIAZEM 125 MG in SODIUM CHLORIDE 0.9% 100 ML IV ONE (07:57)
[2016-11-04] MEDS ORDERED: NON-FORMULARY DRUG (Biotin [Biotin] 5 MG) PO SCH (09:00)
[2016-11-04] MEDS ORDERED: ASPIRIN 325 MG TAB PO SCH (09:00)
[2016-11-04] MEDS: ATENOLOL 25 MG TAB PO SCH (09:01)
[2016-11-04] MEDS: ASPIRIN 81 MG CHEW PO SCH (09:01)
[2016-11-04] MEDS: ATORVASTATIN 10 MG TAB PO SCH (09:02)
[2016-11-04] MEDS: CALCIUM CARB-VIT D 500MG-200UN 1 EACH TAB PO SCH (09:02)
[2016-11-04] MEDS: TORSEMIDE 20 MG TAB PO SCH (09:03)
[2016-11-04] MEDS: FLUTICASONE 50MCG/SPRAY NASAL 16GM EA NOSTRIL SCH (09:05)
[2016-11-04] MEDS ORDERED: DEXTROSE 5% IN WATER 100 ML with AMIODARONE 150 MG IV ONE (10:00)
--- NOTE | 2016-11-04 11:40 | ECHOF ---
Referral Reason:afib MEASUREMENTS -------- HEIGHT: 157.5 cm WEIGHT: 90.7 kg BP: 167/114 RVIDd: 3.1 cm (< 3.3) IVSd: 1.2 cm (0.6 - 1.1) LVIDd: 4.3 cm (3.9 - 5.3) LVPWd: 1.2 cm (0.6 - 1.1) IVSs: 1.9 cm LVIDs: 3.1 cm LVPWs: 1.4 cm LA Diam: 3.7 cm (2.7 - 3.8) LAESV Index (A-L): 22.25 ml/m Ao Diam: 2.8 cm (2.0 - 3.7) AV Cusp: 2.1 cm (1.5 - 2.6) AR PHT: 485 ms RAP: 15.00 mmHg RVSP: 40.39 mmHg FINDINGS -------- Atrial fibrillation. This was a technically adequate study. The left ventricular size is normal. There is borderline concentric left ventricular hypertrophy. Overall left ventricular systolic function is mildly impaired with, an EF between 45 - 50 %. The right ventricle is normal in size and function. Normal LA size by volume 22+/-6 ml/m2. The right atrium is normal in size. There is mild aortic valve sclerosis. There is mild aortic regurgitation. Mild mitral annular calcification present. Mild mitral regurgitation is present. Mild tricuspid regurgitation present. There is mild pulmonary hypertension. The right ventricular systolic pressure, as measured by Doppler, is 40.39mmHg. The pulmonic valve was not well visualized. The aortic root size is normal. The inferior vena cava is dilated with poor inspiratory collapse which is consistent with estimated right atrial pressure of 15 mmHg. There is a small, generalized pericardial effusion present. CONCLUSIONS -------- 1. Atrial fibrillation. 2. Mild mitral annular calcification present. 3. Mild mitral regurgitation is present. 4. Mild tricuspid regurgitation present. 5. There is mild pulmonary hypertension. 6. The right ventricular systolic pressure, as measured by Doppler, is 40.39mmHg. 7. The pulmonic valve was not well visualized. 8. The aortic root size is normal. 9. The inferior vena cava is dilated with poor inspiratory collapse which is consistent with estimated right atrial pressure of 15 mmHg. 10. There is a small, generalized pericardial effusion present. 11. This was a technically adequate study. 12. The left ventricular size is normal. 13. There is borderline concentric left ventricular hypertrophy. 14. The right ventricle is normal in size and function. 15. Normal LA size by volume 22+/-6 ml/m2. 16. The right atrium is normal in size. 17. There is mild aortic valve sclerosis. 18. There is mild aortic regurgitation. ENDORSEMENT CLERK: Ann-Marie Tomlin RDCS
[2016-11-04 12:08] LABS: Glucose,Whole Blood 280 mg/dL (75-99)
[2016-11-04] MEDS: MULTIVITAMINS, THERA 1 EACH TAB PO SCH (12:18)
[2016-11-04] MEDS: AMIODARONE 450 MG in DEXTROSE 5% IN WATER 250 ML IV SCH ×4 (12:44→19:23)
[2016-11-04 16:51] LABS: Glucose,Whole Blood 257 mg/dL (75-99)
[2016-11-04] MEDS: HEPARIN SODIUM,PORCINE/D5W PMX 25,000 UNIT in DEXTROSE/WATER 1 500ML.BAG IV SCH (17:13)
[2016-11-04] MEDS: metFORMIN 500 MG TAB PO SCH (17:23)
[2016-11-04 21:00] LABS: Glucose,Whole Blood 212 mg/dL (75-99)
[2016-11-04] MEDS: FUROSEMIDE 10 MG/ML 4 ML VIAL IV SCH (21:00)
[2016-11-04 22:10] LABS: Appearance,Urine Clear (Clear); Bacteria,Urine Occasional /hpf; Bilirubin,Urine Negative (Negative); Glucose,Urine (UA) Negative (Negative); Ketones,Urine Negative (Negative); Leukocyte Esterase,Urine Trace (Negative); Mucus,Urine Rare /hpf; Nitrite,Urine Negative (Negative); PH, Urine 5.5 (5.0-8.0); Particle Count 2379; Protein,Urine Trace (Negative); RBC,Urine <1 /hpf (0-5); Squamous Epithelial Cell,Urine 3 /hpf (0-4); UA Billing (MACRO vs. MICRO) MICRO; Urobilinogen,Urine <2.0 mg/dL (<2.0); WBC,Urine 4 /hpf (0-5)
--- NOTE | 2016-11-04 22:13 | PN ---
DATE OF SERVICE: 11/04/2016 This 71-year-old woman who was admitted with atrial fibrillation with fast ventricular rate is being closely monitored. The patient also had a 2-D echo with Doppler. Cardiology is following the patient closely. Two-D echo with Doppler showed ejection fraction about 45% to 50% with mild valvular abnormalities. On exam, alert and oriented x3. Pulse 131, regular. Blood pressure is 135/78, respiration 20, temperature 97.4, pulse ox 93% on room air. HEENT: Conjunctivae normal. NECK: No jugular venous distention. CARDIOVASCULAR SYSTEM: S1, S2 tachycardic. RESPIRATORY SYSTEM: Breath sounds diminished at the bases. No rhonchi. No crackles. ABDOMEN: Soft, nontender. LEGS: No edema. No swelling. NERVOUS SYSTEM: No focal deficit. LABS: CBC within normal limits. Glucose is 225, 280. AST is 50. ALT is 67. Triglycerides are 291. ASSESSMENT: 1. Atrial fibrillation with a fast ventricular rate, present on admission. 2. Increased AST, ALT; possible acute mild hepatitis, present on admission. 3. Increased random blood sugar, possibly diabetes mellitus, type 2, new onset. 4. Hypertension, essential. 5. Hyperlipidemia. 6. History of nephrolithiasis. 7. History of basal cell carcinoma removed from the right eye. 8. Left Achilles tendon repair. 9. Obesity with body mass index of 36.6. 10. Decreased TSH with normal free T4 with possible sick euthyroid syndrome. 11. FULL CODE. RECOMMENDATIONS AND DISCUSSION: I recommend to continue with the current medications, continue with the monitoring, symptomatic treatment. At this time I would also recommend repeat labs. Would recommend acute hepatitis panel and also initiate a small dose of metformin. See orders for further details.
[2016-11-05] MEDS ORDERED: METOPROLOL TARTRATE 50 MG TAB PO STA (04:30)
[2016-11-05] MEDS: HEPARIN SODIUM,PORCINE/D5W PMX 25,000 UNIT in DEXTROSE/WATER 1 500ML.BAG IV SCH (05:38)
[2016-11-05 05:55] LABS: Glucose,Whole Blood 221 mg/dL (75-99)
[2016-11-05 06:06] LABS: Basophils % (A) 0 %; CH 31.9; CHCM 35.1; Eosinophils # (A) 0.2 k/uL (0-0.7); Eosinophils % (A) 3 %; HCT 42.1 % (34.0-46.0); HDW 3.13; HGB 14.5 gm/dL (11.4-16.0); Luc # (Auto) 0.18; Luc % (Auto) 3; Lymphocytes # (A) 1.8 k/uL (1.0-4.8); Lymphocytes % (A) 32 %; MCH 31.5 pg (25.0-35.0); MCHC 34.4 g/dL (31.0-37.0); MCV 91.5 fL (80.0-100.0); Mean Platelet Volume 7.8; Monocytes # (A) 0.3 k/uL (0-1.0); Monocytes % (A) 6 %; Neutrophils # (A) 3.3 k/uL (1.3-7.7); Neutrophils % (A) 56 %; RBC 4.61 m/uL (3.80-5.40); RDW 14.2 % (11.5-15.5); WBC 5.8 k/uL (3.8-10.6)
[2016-11-05 06:34] LABS: ALT 66 U/L (9-52); AST 49 U/L (14-36); Alkaline Phosphatase 87 U/L (38-126); Anion Gap 11 mmol/L; Blood Urea Nitrogen 15 mg/dL (7-17); Calcium 9.2 mg/dL (8.4-10.2); Carbon Dioxide 24 mmol/L (22-30); Chloride 102 mmol/L (98-107); Glucose 217 mg/dL (74-99); Non-African American GFR(MDRD) >60 (>60 ml/min/1.73 sqM); Potassium 3.4 mmol/L (3.5-5.1); Sodium 137 mmol/L (137-145); Total Bilirubin 1.4 mg/dL (0.2-1.3); Total Protein 6.4 g/dL (6.3-8.2)
[2016-11-05] MEDS: metFORMIN 500 MG TAB PO SCH ×2 (06:41→17:26)
[2016-11-05] MEDS: INSULIN LISPRO (humaLOG) 300 UNIT/3 ML VIAL SQ SCH ×4 (06:41→23:19)
[2016-11-05] MEDS: FLUTICASONE 50MCG/SPRAY NASAL 16GM EA NOSTRIL SCH (08:18)
[2016-11-05] MEDS: ASPIRIN 81 MG CHEW PO SCH (08:18)
[2016-11-05] MEDS: ATORVASTATIN 10 MG TAB PO SCH (08:18)
[2016-11-05] MEDS: ATENOLOL 25 MG TAB PO SCH (08:18)
[2016-11-05] MEDS: CALCIUM CARB-VIT D 500MG-200UN 1 EACH TAB PO SCH (08:18)
[2016-11-05] MEDS: FUROSEMIDE 10 MG/ML 4 ML VIAL IV SCH ×2 (08:18→19:55)
[2016-11-05] MEDS: TORSEMIDE 20 MG TAB PO SCH (08:19)
[2016-11-05] MEDS ORDERED: Potassium Replacement Protocol 1 EACH MISC MISCELLANE PRN (09:27)
[2016-11-05] MEDS: AMIODARONE 450 MG in DEXTROSE 5% IN WATER 250 ML IV SCH ×4 (11:25→11:26)
[2016-11-05] MEDS: MULTIVITAMINS, THERA 1 EACH TAB PO SCH (11:42)
[2016-11-05] MEDS: POTASSIUM CHLORIDE ER 20 MEQ TAB.ER PO SCH ×4 (11:42→18:28)
[2016-11-05 11:59] LABS: Glucose,Whole Blood 281 mg/dL (75-99)
[2016-11-05] MEDS: DIGOXIN 250 MCG/ML 2 ML AMP IVP SCH ×2 (13:12→18:15)
--- NOTE | 2016-11-05 15:34 | P.PN ---
Subjective Principal diagnosis: Atrial fibrillation This is a pleasant 71-year-old female with history of hypertension, hyperlipidemia, borderline diabetes, who presented to the hospital from the walk -in clinic. According to the patient, she's been experiencing a hockey cough for the past few days, worse at night, and she also states that when she exerts herself physically she has noticed shortness of breath. She denies any chest discomfort, she has had no palpitations or heart racing according to her. Patient went to the walk-in clinic for evaluation of her cough, EKG was performed, patient was sent to the emergency room for admission. EKG performed in her doctor's office is unavailable, but the EKG performed on arrival here showed atrial fibrillation. Patient continues to be in atrial fibrillation, heart rate in the 120s to 130s, currently on amiodarone and beta kelsey. We will give the patient 2 doses of IV Lanoxin and start her on oral Lanoxin from tomorrow. She also diuresed well on IV Lasix. Overall she is feeling much better today. Objective - Vital Signs Vital signs: Vital Signs Temp 96.4 F L 11/05/16 12:00 Pulse 132 H 11/05/16 12:00 Resp 18 11/05/16 12:00 BP 139/96 11/05/16 12:00 Pulse Ox 96 11/05/16 12:00 Intake & Output 11/04/16 11/05/16 11/05/16 18:59 06:59 18:59 Intake Total 086.250 4705.089 748.8 Output Total 775 1000 Balance 724.415 513.089 -251.2 Weight 94.9 kg Intake: IV 964.8 268.8 0.9 320 Amiodarone 450 mg In 267.2 80 Dextrose 5% in Water 250 ml @ 1 MG/MIN 34.53 mls/ hr IV .Q7H31M [facility] Rx#: [id number] Heparin Sodium,Porcine/ 377.6 188.8 D5w Pmx 25,000 unit In Dextrose/Water 1 500ml. bag @ 11 UNITS/KG/HR 19. 95 mls/hr IV .Q24H [facility] Rx #:[id number] Intake, IV Titration 506.415 323.289 Amount Amiodarone 450 mg In 209.482 10.068 Dextrose 5% in Water 250 ml @ 1 MG/MIN 34.53 mls/ hr IV .Q7H31M [facility] Rx#: [id number] Diltiazem 125 mg In 88.583 Sodium Chloride 0.9% 100 ml @ 5 MG/HR 5 mls/hr IV .Q24H ONE Rx#:[id number] Heparin Sodium,Porcine/ 208.35 313.221 D5w Pmx 25,000 unit In Dextrose/Water 1 500ml. bag @ 11 UNITS/KG/HR 19. 95 mls/hr IV .Q24H [facility] Rx #:[id number] Oral 218 480 Output: Urine 775 1000 Other: Voiding Method Toilet Toilet Toilet # Voids 1 1 # Bowel Movements 1 - Exam PHYSICAL EXAMINATION: HEENT: Head is atraumatic, normocephalic. Pupils equal, round. Neck is supple. There is elevated jugular venous pressure. HEART EXAMINATION: Heart S1 and S2 irregularly irregular CHEST EXAMINATION: Lungs are clear to auscultation.. ABDOMEN: Soft, obese, nontender. Bowel sounds are heard. No organomegaly noted. EXTREMITIES: 2+ peripheral pulses with trace evidence of peripheral edema and no calf tenderness noted. NEUROLOGIC patient is awake, alert and oriented -3. . - Labs CBC & Chem 7: 11/05/16 05:32 11/05/16 05:32 Labs: Abnormal Lab Results - Last 24 Hours (Table) 11/04/16 11/04/16 11/04/16 Range/Units 16:49 20:57 21:30 Plt Count (150-450) k/uL APTT (22.0-30.0) sec Potassium (3.5-5.1) mmol/L Glucose (74-99) mg/dL POC Glucose (mg/dL) 257 H 212 H (75-99) mg/dL Total Bilirubin (0.2-1.3) mg/dL AST (14-36) U/L ALT (9-52) U/L Urine Protein Trace H (Negative) Ur Leukocyte Esterase Trace H (Negative) Urine Bacteria Occasional H (None) /hpf Hyaline Casts 47 H (0-2) /lpf Urine Mucus Rare H (None) /hpf 11/05/16 11/05/16 11/05/16 Range/Units 05:32 05:32 05:32 Plt Count 141 L (150-450) k/uL APTT 57.8 H (22.0-30.0) sec Potassium 3.4 L (3.5-5.1) mmol/L Glucose 217 H (74-99) mg/dL POC Glucose (mg/dL) (75-99) mg/dL Total Bilirubin 1.4 H (0.2-1.3) mg/dL AST 49 H (14-36) U/L ALT 66 H (9-52) U/L Urine Protein (Negative) Ur Leukocyte Esterase (Negative) Urine Bacteria (None) /hpf Hyaline Casts (0-2) /lpf Urine Mucus (None) /hpf 11/05/16 11/05/16 Range/Units 05:40 11:55 Plt Count (150-450) k/uL APTT (22.0-30.0) sec Potassium (3.5-5.1) mmol/L Glucose (74-99) mg/dL POC Glucose (mg/dL) 221 H 281 H (75-99) mg/dL Total Bilirubin (0.2-1.3) mg/dL AST (14-36) U/L ALT (9-52) U/L Urine Protein (Negative) Ur Leukocyte Esterase (Negative) Urine Bacteria (None) /hpf Hyaline Casts (0-2) /lpf Urine Mucus (None) /hpf Microbiology - Last 24 Hours (Table) 11/04/16 21:30 Urine Culture - Preliminary Urine,Clean Catch Assessment and Plan Plan: Assessment and Plan #1 atrial fibrillation with rapid ventricular response, chronic persistent. #2 hypertension #3 borderline diabetes #4 hyperlipidemia #5 hyperthyroidism, Plan Patient's IV amiodarone will be discontinued and patient will be started on oral amiodarone. We will also give the patient 2 doses of IV Lanoxin and start her on oral Lanoxin from tomorrow. She is covered for Eliquis therefore we will stop the IV heparin and initiate Eliquis today. DNP note has been reviewed, I agree with a documented findings and plan of care. Patient was seen and examined.
[2016-11-05] MEDS: AMIODARONE 200 MG TAB PO SCH ×2 (15:43→19:56)
[2016-11-05 16:16] LABS: Glucose,Whole Blood 141 mg/dL (75-99)
--- NOTE | 2016-11-05 16:31 | PN ---
Patient is a 71-year-old admitted with new-onset atrial fibrillation. Patient was switched to oral amiodarone. Patient is also on digoxin. Patient's EF in the past was around 45%; apparently now normal ejection fraction. But patient has an IVC which non-collapsing, because of which patient was started on IV Lasix. I discontinued Torsemide. Patient may also even have hepatic congestion, because of which mildly elevated liver enzymes AST and ALT. Patient is still tachycardic, being transitioned to oral medications, as mentioned above. REVIEW OF SYSTEMS: CARDIOVASCULAR: No chest pain, no orthopnea, no PND, no palpitations. PULMONARY: Denied any shortness of breath. No cough or hemoptysis. GASTROINTESTINAL: No diarrhea, nausea or vomiting. No abdominal pain. Normoactive bowel sounds. NEUROLOGIC: No headaches, no weakness, no numbness. Patient continues to be on IV heparin. Medications were reviewed. PHYSICAL EXAMINATION: VITAL SIGNS: Temperature 96.4, pulse of 133, respiratory rate of 18. Blood pressure is 139/96. Saturating at 96% on room air. GENERAL: The patient is alert and oriented x3, not in any acute distress. Well developed, well nourished. HEENT: Pupils are round and equally reacting to light. EOMI. No scleral icterus. No conjunctival pallor. Normocephalic, atraumatic. No pharyngeal erythema. No thyromegaly. CARDIOVASCULAR: S1, S2 present. Patient is still tachycardic. Irregularly irregular rhythm. Patient has minimally elevated JVD. PULMONARY: Chest is clear to auscultation, no wheezing or crackles. ABDOMEN: Soft, nontender, nondistended, normoactive bowel sounds. No palpable organomegaly. MUSCULOSKELETAL: No joint swelling or deformity. EXTREMITIES: No cyanosis, clubbing, or pedal edema. NEUROLOGICAL: Gross neurological examination did not reveal any focal deficits. SKIN: No rashes. Patient's TSH is low, but T4 is normal. ASSESSMENT AND PLAN: 1. New-onset atrial fibrillation. 2. Mild congestive heart failure, probably diastolic dysfunction, with acute exacerbation. 3. Diabetes mellitus, type 2. 4. Hypertension. 5. Hyperlipidemia. 6. Obesity. 7. Possible sick euthyroid syndrome. Will need a repeat TSH in about a month. PLAN: As mentioned above in the interval history, transition to oral rate-control medications. Cardiology needs to decide about the anticoagulation probably with the newer anticoagulants. Continue with IV Lasix. Monitor kidney function.
[2016-11-05] MEDS: APIXABAN 5 MG TAB PO SCH (19:55)
[2016-11-05 21:05] LABS: Glucose,Whole Blood 157 mg/dL (75-99)
[2016-11-06 05:59] LABS: Glucose,Whole Blood 187 mg/dL (75-99)
[2016-11-06 06:04] LABS: Basophils % (A) 0 %; CHCM 34.8; Eosinophils # (A) 0.1 k/uL (0-0.7); Eosinophils % (A) 2 %; HCT 38.5 % (34.0-46.0); HDW 3.24; HGB 13.5 gm/dL (11.4-16.0); Luc # (Auto) 0.18; Luc % (Auto) 4; Lymphocytes # (A) 1.1 k/uL (1.0-4.8); Lymphocytes % (A) 26 %; MCH 31.5 pg (25.0-35.0); MCHC 35.1 g/dL (31.0-37.0); MCV 89.5 fL (80.0-100.0); Mean Platelet Volume 7.4; Monocytes # (A) 0.3 k/uL (0-1.0); Monocytes % (A) 7 %; Neutrophils # (A) 2.7 k/uL (1.3-7.7); Neutrophils % (A) 61 %; RDW 13.9 % (11.5-15.5); WBC 4.4 k/uL (3.8-10.6); WBC (Perox) 4.55
[2016-11-06 06:07] VITALS: RESP 18
[2016-11-06 06:17] LABS: ALT 58 U/L (9-52); AST 42 U/L (14-36); Alkaline Phosphatase 70 U/L (38-126); Anion Gap 9 mmol/L; Blood Urea Nitrogen 15 mg/dL (7-17); Carbon Dioxide 27 mmol/L (22-30); Chloride 101 mmol/L (98-107); Glucose 189 mg/dL (74-99); Non-African American GFR(MDRD) >60 (>60 ml/min/1.73 sqM); Potassium 3.6 mmol/L (3.5-5.1); Sodium 137 mmol/L (137-145); Total Bilirubin 1.4 mg/dL (0.2-1.3); Total Protein 5.8 g/dL (6.3-8.2)
[2016-11-06] MEDS: INSULIN LISPRO (humaLOG) 300 UNIT/3 ML VIAL SQ SCH ×2 (06:47→13:01)
[2016-11-06] MEDS: metFORMIN 500 MG TAB PO SCH (06:47)
[2016-11-06] MEDS ORDERED: DIGOXIN 125 MCG TAB PO SCH (09:00)
[2016-11-06] MEDS: AMIODARONE 200 MG TAB PO SCH (10:02)
[2016-11-06] MEDS: APIXABAN 5 MG TAB PO SCH (10:02)
[2016-11-06] MEDS: ATENOLOL 25 MG TAB PO SCH (10:03)
[2016-11-06] MEDS: ATORVASTATIN 10 MG TAB PO SCH (10:03)
[2016-11-06] MEDS: ASPIRIN 81 MG CHEW PO SCH (10:03)
[2016-11-06] MEDS: CALCIUM CARB-VIT D 500MG-200UN 1 EACH TAB PO SCH (10:05)
[2016-11-06] MEDS: FLUTICASONE 50MCG/SPRAY NASAL 16GM EA NOSTRIL SCH (10:12)
[2016-11-06] MEDS: FUROSEMIDE 10 MG/ML 4 ML VIAL IV SCH ×2 (11:16→11:25)
[2016-11-06 12:03] VITALS: BP 150/75; PULSE 71; TEMP 97.1
[2016-11-06 12:19] LABS: Glucose,Whole Blood 156 mg/dL (75-99)
[2016-11-06] MEDS: MULTIVITAMINS, THERA 1 EACH TAB PO SCH (13:01)
--- NOTE | 2016-11-06 15:18 | P.PN ---
Subjective Principal diagnosis: Atrial fibrillation This is a pleasant 71-year-old female with history of hypertension, hyperlipidemia, borderline diabetes, who presented to the hospital from the walk -in clinic. According to the patient, she's been experiencing a hockey cough for the past few days, worse at night, and she also states that when she exerts herself physically she has noticed shortness of breath. She denies any chest discomfort, she has had no palpitations or heart racing according to her. Patient went to the walk-in clinic for evaluation of her cough, EKG was performed, patient was sent to the emergency room for admission. EKG performed in her doctor's office is unavailable, but the EKG performed on arrival here showed atrial fibrillation. Patient continues to be in atrial fibrillation, heart rate in the 70s to 80s at rest, the 100s with activity. Cardiology's perspective she may be able to be discharged home today. We'll make her a follow-up appointment to see Dr. Meade - Vital Signs Vital signs: Vital Signs Temp 97.1 F L 11/06/16 11:10 Pulse 71 11/06/16 11:10 Resp 18 11/06/16 11:10 BP 150/75 11/06/16 11:10 Pulse Ox 97 11/06/16 11:10 Intake & Output 11/05/16 11/06/16 11/06/16 18:59 06:59 18:59 Intake Total 988.8 240 Output Total 2000 950 300 Balance -1011.2 -950 -60 Weight 93.1 kg Intake: IV 268.8 Amiodarone 450 mg In 80 Dextrose 5% in Water 250 ml @ 1 MG/MIN 34.53 mls/ hr IV .Q7H31M [facility] Rx#: [id number] Heparin Sodium,Porcine/ 188.8 D5w Pmx 25,000 unit In Dextrose/Water 1 500ml. bag @ 11 UNITS/KG/HR 19. 95 mls/hr IV .Q24H [facility] Rx #:[id number] Oral 720 240 Output: Urine 2000 950 300 Other: Voiding Method Toilet Toilet Toilet # Voids 2 - Exam PHYSICAL EXAMINATION: HEENT: Head is atraumatic, normocephalic. Pupils equal, round. Neck is supple. There is elevated jugular venous pressure. HEART EXAMINATION: Heart S1 and S2 irregularly irregular CHEST EXAMINATION: Lungs are clear to auscultation.. ABDOMEN: Soft, obese, nontender. Bowel sounds are heard. No organomegaly noted. EXTREMITIES: 2+ peripheral pulses with trace evidence of peripheral edema and no calf tenderness noted. NEUROLOGIC patient is awake, alert and oriented -3. . - Labs CBC & Chem 7: 11/06/16 05:43 11/06/16 05:43 Labs: Abnormal Lab Results - Last 24 Hours (Table) 11/05/16 11/05/16 11/06/16 Range/Units 16:09 21:04 05:43 Plt Count 130 L (150-450) k/uL Glucose (74-99) mg/dL POC Glucose (mg/dL) 141 H 157 H (75-99) mg/dL Total Bilirubin (0.2-1.3) mg/dL AST (14-36) U/L ALT (9-52) U/L Total Protein (6.3-8.2) g/dL Albumin (3.5-5.0) g/dL 11/06/16 11/06/16 11/06/16 Range/Units 05:43 05:57 12:02 Plt Count (150-450) k/uL Glucose 189 H (74-99) mg/dL POC Glucose (mg/dL) 187 H 156 H (75-99) mg/dL Total Bilirubin 1.4 H (0.2-1.3) mg/dL AST 42 H (14-36) U/L ALT 58 H (9-52) U/L Total Protein 5.8 L (6.3-8.2) g/dL Albumin 3.4 L (3.5-5.0) g/dL Microbiology - Last 24 Hours (Table) 11/04/16 21:30 Urine Culture - Final Urine,Clean Catch Assessment and Plan Plan: Assessment and Plan #1 atrial fibrillation with rapid ventricular response, chronic persistent. #2 hypertension #3 borderline diabetes #4 hyperlipidemia #5 hyperthyroidism, Plan From cardiology's perspective, patient may be able to be discharged home today. We'll make her a follow-up appointment to see Dr. VALERY Schaefer in the office post discharge. Patient will be discharged home on amiodarone 200 mg one tablet by mouth 3 times a day for one week, then 200 mg daily, Eliquis 5 mg one tablet by mouth twice a day, Ecotrin 81 mg daily, atenolol 75 mg daily, Lipitor 10 mg daily, Lanoxin 0.125 mg by mouth daily, Demadex 40 mg daily. DNP note has been reviewed, I agree with a documented findings and plan of care. Patient was seen and examined.
--- NOTE | 2016-11-07 08:11 | DS ---
DATE OF ADMISSION: 11/03/2016 DATE OF DISCHARGE: 11/06/2016 The patient is a 71-year-old admitted with new onset atrial fibrillation. Patient is being discharged on oral amiodarone. Patient will continue her amiodarone and patient to is also being discharged on Eliquis. Patient's torsemide dose is being increased to 40 mg. Patient has an EF of 45%, was in heart failure on this hospitalization as well. Patient is otherwise clinically doing well and patient will be discharged today. Patient was seen and examined on the day of discharge. Vitals are stable. PHYSICAL EXAMINATION: GENERAL: The patient is alert and oriented x3, not in any acute distress. Well developed, well nourished. HEENT: Pupils are round and equally reacting to light. EOMI. No scleral icterus. No conjunctival pallor. Normocephalic, atraumatic. No pharyngeal erythema. No thyromegaly. CARDIOVASCULAR: S1 and S2 present. No murmurs, rubs, or gallops. PULMONARY: Chest is clear to auscultation, no wheezing or crackles. ABDOMEN: Soft, nontender, nondistended, normoactive bowel sounds. No palpable organomegaly. MUSCULOSKELETAL: No joint swelling or deformity. EXTREMITIES: No cyanosis, clubbing, or pedal edema. NEUROLOGICAL: Gross neurological examination did not reveal any focal deficits. SKIN: No rashes. Patient to followup with Dr. Jay Schaefer in 2 weeks; Dr. Pieter Santo on the 11 of November at 11:30. Activity as tolerated. Cardiac diet and CHF discharge instructions will be provided. FINAL DIAGNOSES: 1. New-onset atrial fibrillation, rate controlled at this point of time. Patient is in sinus rhythm. 2. Mild congestive heart failure, probably chronic diastolic dysfunction as well as systolic dysfunction with acute exacerbation. 3. Type 2 diabetes mellitus. 4. Hypertension. 5. Hyperlipidemia. 6. Obesity. 7. Sick euthyroid syndrome. TSH needs to be repeated again in about a month. Please refer to my depart summary for further details of discharge medications. DISCHARGE DIET: Cardiac and ADA 1800 calorie diet. Spent greater than 35 minutes in total discharge process.
== END 2016-11-06 14:34 | disposition home or self-care (01) | DRG 308 ==
LOC: EC 10:23 → 6SEL 13:57
PROVIDERS: ADMIT Hospitalist; ATTEND Hospitalist
DX: I48.91 Unspecified atrial fibrillation (principal); I50.43 Acute on chronic combined systolic (congestive) and diastolic (congestive) heart failure; E11.9 Type 2 diabetes mellitus without complications; K76.1 Chronic passive congestion of liver; I11.0 Hypertensive heart disease with heart failure; E05.90 Thyrotoxicosis, unspecified without thyrotoxic crisis or storm; E07.81 Sick-euthyroid syndrome; E66.9 Obesity, unspecified; E78.5 Hyperlipidemia, unspecified; I48.92 Unspecified atrial flutter; Z68.36 Body mass index [BMI] 36.0-36.9, adult; Z79.899 Other long term (current) drug therapy; Z82.49 Family history of ischemic heart disease and other diseases of the circulatory system; Z85.828 Personal history of other malignant neoplasm of skin; Z87.442 Personal history of urinary calculi; Z79.82 Long term (current) use of aspirin
CPT/HCPCS: 36415; 71020; 80053; 80061; 81001; 82550; 82553; 83036; 83735; 83880; 84132; 84439; 84443; 84481; 84484; 85025; 85379; 85610; 85730; 87086; 93005; 93306; 93970; 94640; 94760; 96365; 96375; 96376; 99291

== ENCOUNTER → 2016-11-24 | Outpatient (CLI) | payer MEDICARE ==
[2016-11-24 08:24] LABS: CH 31.6; CHCM 35.6; HCT 46.1 % (34.0-46.0); HDW 2.98; MCHC 34.8 g/dL (31.0-37.0); MCV 89.1 fL (80.0-100.0); Mean Platelet Volume 7.1; RBC 5.18 m/uL (3.80-5.40); RDW 13.1 % (11.5-15.5)
[2016-11-24 08:47] LABS: Anion Gap 11 mmol/L; Blood Urea Nitrogen 21 mg/dL (7-17); Carbon Dioxide 26 mmol/L (22-30); Chloride 101 mmol/L (98-107); Glucose 182 mg/dL (74-99); Non-African American GFR(MDRD) >60 (>60 ml/min/1.73 sqM); Potassium 4.4 mmol/L (3.5-5.1); Sodium 138 mmol/L (137-145)
== END | disposition home or self-care (01) ==
LOC: LABWHC1 07:36
PROVIDERS: ATTEND Internal Medicine Interventional Cardiology
DX: I48.91 Unspecified atrial fibrillation (principal); I10 Essential (primary) hypertension
CPT/HCPCS: 36415; 80048; 84439; 84443; 85027

== ENCOUNTER 2016-12-04 05:56 | Day surgery (SDC) | payer MEDICARE ==
[2016-12-03 11:35] VITALS: BMI 36.6
[2016-12-04] MEDS ORDERED: LACTATED RINGERS 1,000 ML IV SCH (06:03)
[2016-12-04] MEDS ORDERED: SODIUM CHLORIDE 0.9% 1,000 ML IV SCH ×2 (06:03→07:45)
[2016-12-04 06:22] VITALS: RESP 16; TEMP 98.2
[2016-12-04 06:35] LABS: Glucose,Whole Blood 197 mg/dL (75-99)
[2016-12-04] MEDS ORDERED: LIDOCAINE 1% INJ 10MG/ML (20 ML MDV) ONE (07:15)
[2016-12-04] MEDS ORDERED: PROPOFOL 10 MG/ML 20 ML VIAL IV ONE (07:15)
[2016-12-04 09:45] VITALS: PULSE 60
[2016-12-04 09:58] VITALS: BP 157/76
--- NOTE | 2016-12-04 16:22 | CE ---
DATE OF SERVICE: 12/04/2016. PROCEDURE: Electrical cardioversion. PERFORMED BY: Dr. Jay Schaefer. CLINICAL INFORMATION: Mrs. Danielle Horton was brought in for electrical cardioversion electively. This lady has persistent atrial fibrillation, diabetes, hypertension, and recent hospitalization. She has been started on Eliquis and amiodarone but did not convert to sinus rhythm. She was brought in for the procedure electively. PROCEDURE NOTE: Under the influence of ultra short-acting intravenous anesthetic agent, and with the attendance of the anesthesiologist, a single 200 joules synchronized shock was delivered with anterior and posterior patches. Patient converted to sinus rhythm, remained hemodynamically stable and neurologically intact. This was a successful cardioversion. Results were discussed with the patient and family. She will be discharged hopefully home in the next few hours and I will see her in the office next week.
--- NOTE | 2016-12-04 16:24 | LTR ---
December 04, 2016 RE: Danielle Horton Angelita Dear Dr. Santo: Thank you for the opportunity to participate in the care of Mrs. Danielle Horton. I am pleased to report to you that this lady had successful electrical cardioversion. She will be discharged home later on today and I will see her in the office next week. Thank you for your referral. Please call for questions. With kindest regards, Sincerely, LIZETH ALVARADO MD
== END 2016-12-04 09:58 | disposition home or self-care (01) ==
LOC: CATHCVL 05:56
PROVIDERS: ATTEND Internal Medicine Interventional Cardiology
DX: I48.1 Persistent atrial fibrillation (principal); E11.9 Type 2 diabetes mellitus without complications; I10 Essential (primary) hypertension; E78.5 Hyperlipidemia, unspecified; E78.00 Pure hypercholesterolemia, unspecified; Z82.49 Family history of ischemic heart disease and other diseases of the circulatory system; Z79.84 Long term (current) use of oral hypoglycemic drugs; Z79.02 Long term (current) use of antithrombotics/antiplatelets; Z79.899 Other long term (current) drug therapy
CPT/HCPCS: 93005; 92960; J2001; J2704

== ENCOUNTER → 2017-01-19 | Outpatient (CLI) | payer MEDICARE ==
[2017-01-19 09:34] LABS: Anion Gap 14 mmol/L; Blood Urea Nitrogen 33 mg/dL (7-17); Calcium 9.9 mg/dL (8.4-10.2); Carbon Dioxide 30 mmol/L (22-30); Chloride 95 mmol/L (98-107); Glucose 190 mg/dL (74-99); Non-African American GFR(MDRD) 57 (>60 ml/min/1.73 sqM); Potassium 3.4 mmol/L (3.5-5.1); Sodium 139 mmol/L (137-145)
[2017-01-19 11:33] LABS: Hemoglobin A1C 7.3 % (4.2-6.1)
== END | disposition home or self-care (01) ==
LOC: LABWHC1 08:07
PROVIDERS: ATTEND Internal Medicine Interventional Cardiology
DX: E11.21 Type 2 diabetes mellitus with diabetic nephropathy (principal); I10 Essential (primary) hypertension
CPT/HCPCS: 36415; 80048; 83036

== ENCOUNTER → 2017-02-23 | Outpatient (CLI) | payer MEDICARE ==
--- NOTE | 2017-02-24 10:02 | MM ---
Reason for exam: screening (asymptomatic). Last mammogram was performed 1 year ago. History: Patient is postmenopausal and has history of other cancer at age 66. Family history of breast cancer in maternal cousin at age 60, breast cancer in paternal cousin at age 70, and breast cancer in maternal cousin. Benign US biopsy breast VAD RT of the right breast, February 22, 2015. Took hormonal contraceptives for 6 years. Took estrogen for 5 years beginning at age 48. Took progesterone for 5 years beginning at age 48. Physical Findings: A clinical breast exam by your physician is recommended on an annual basis and results should be correlated with mammographic findings. MG 3D Screening Mammo W/Cad Bilateral CC and MLO view(s) were taken. Prior study comparison: February 20, 2016, bilateral MG 3d screening mammo w/cad. August 28, 2015, right breast US breast limited RT. February 22, 2015, right breast MG diagnostic mammo RT w CAD. There are scattered fibroglandular densities. Finding: There are a few typically benign vascular, round calcifications in both breasts. Previous mammotome biopsy in the right breast. There is no discrete abnormality. ASSESSMENT: Benign, BI-RAD 2 RECOMMENDATION: Routine screening mammogram of both breasts in 1 year.
== END | disposition home or self-care (01) ==
LOC: RADMAMWWP 11:15
PROVIDERS: ATTEND Internal Medicine
DX: Z12.31 Encounter for screening mammogram for malignant neoplasm of breast (principal)
CPT/HCPCS: 77063; G0202

== ENCOUNTER → 2018-02-24 | Outpatient (CLI) | payer MEDICARE ==
--- NOTE | 2018-02-26 07:50 | MM ---
Reason for exam: screening (asymptomatic). Last mammogram was performed 1 year ago. History: Patient is postmenopausal and has history of other cancer at age 66. Family history of breast cancer in maternal cousin at age 60, breast cancer in paternal cousin at age 70, and breast cancer in maternal cousin. Benign US biopsy breast VAD RT of the right breast, February 22, 2015. Took hormonal contraceptives for 6 years. Took estrogen for 5 years beginning at age 48. Took progesterone for 5 years beginning at age 48. Physical Findings: A clinical breast exam by your physician is recommended on an annual basis and results should be correlated with mammographic findings. MG 3D Screening Mammo W/Cad Bilateral CC and MLO view(s) were taken. Prior study comparison: February 23, 2017, bilateral MG 3d screening mammo w/cad. February 20, 2016, bilateral MG 3d screening mammo w/cad. The breast tissue is almost entirely fat. Previous mammotome biopsy in the right breast. ASSESSMENT: Benign, BI-RAD 2 RECOMMENDATION: Routine screening mammogram of both breasts in 1 year.
== END | disposition home or self-care (01) ==
LOC: RADMAMWWP 08:29
PROVIDERS: ATTEND Internal Medicine
DX: Z12.31 Encounter for screening mammogram for malignant neoplasm of breast (principal)
CPT/HCPCS: 77063; 77067

== ENCOUNTER 2019-03-12 15:24 | Emergency (ER) | payer MEDICARE ==
[2019-03-12] MEDS ORDERED: LIDOCAINE 1% INJ 10MG/ML (20 ML MDV) SQ ONE (16:02)
--- NOTE | 2019-03-12 16:09 | ED ---
Fall HPI - General Chief Complaint: Fall Stated Complaint: Facial injury Time Seen by Provider: 03/12/19 15:50 Source: patient Mode of arrival: ambulatory - History of Present Illness Initial Comments: Patient is a 74-year-old female presenting to the emergency Department with complaints of facial injury after falling today. Patient states she was walking into a garage and tripped over a piece of cement. Patient states she fell forward hitting her right side of her face on a power supply engineer. Patient denies LOC. Patient is on eliquis for A. fib. Patient has a laceration above her right eye as well as on the right side of her upper lip. Bleeding is controlled at this time. Patient admits to having a slight headache on the right side that she rates 2/10. Patient denies nausea, vomiting. Patient admits to some mild pain on her right knee from landing there. Patient is ambulating fine and able to move her right knee without complications. Patient has no other complaints at this time. - Related Data Home Medications Medication Instructions Recorded Confirmed Atenolol [Tenormin] 50 mg PO DAILY 09/01/15 03/12/19 Multivitamins, Thera [Multivitamin 1 tab PO DAILY 09/01/15 03/12/19 (formulary)] Vit C/E/Zn/Coppr/Lutein/Zeaxan 1 cap PO BID 09/01/15 03/12/19 [Preservision Areds 2 Softgel] Aspirin EC [Ecotrin Low Dose] 81 mg PO DAILY 09/07/16 03/12/19 Biotin 5 mg PO DAILY 09/07/16 03/12/19 Albuterol Sulfate [Proair Hfa] 2 puff INHALATION RT-Q6H PRN 11/03/16 03/12/19 Carboxymethylcellulose Sodium 1 drop RIGHT EYE DAILY 11/03/16 03/12/19 [Refresh Tears] traZODone HCL 50 mg PO HS PRN 11/03/16 03/12/19 Amiodarone [Cordarone] 200 mg PO DAILY 12/03/16 03/12/19 Calcium Carb/Vitamin D3/Vit K1 1 tab PO DAILY 12/03/16 03/12/19 [Citracal Soft Chew] Cholecalciferol [Vitamin D3] 2,000 unit PO DAILY 12/03/16 03/12/19 Loratadine [Claritin] 10 mg PO DAILY PRN 12/03/16 03/12/19 Torsemide [Demadex] 20 mg PO DAILY 12/03/16 03/12/19 metFORMIN HCL [Glucophage] 500 mg PO DAILY 12/03/16 03/12/19 Atorvastatin [Lipitor] 20 mg PO DAILY 03/12/19 03/12/19 Timolol [Betimol 0.5% Ophth Soln] 1 drop LEFT EYE QAM 03/12/19 03/12/19 Previous Rx's Medication Instructions Recorded Apixaban [Eliquis] 5 mg PO BID #60 tab 11/06/16 Amoxicillin/Potassium Clav 1 tab PO BID 5 Days #10 tab 03/12/19 [Augmentin 875-125 Tablet] Allergies Allergy/AdvReac Type Severity Reaction Status Date / Time No Known Allergies Allergy Verified 03/12/19 16:11 Review of Systems ROS Statement: Those systems with pertinent positive or pertinent negative responses have been documented in the HPI. ROS Other: All systems not noted in ROS Statement are negative. Past Medical History Past Medical History: Atrial Fibrillation, Cancer, Diabetes Mellitus, Hyperlipidemia, Hypertension Additional Past Medical History / Comment(s): kidney stones, basal cell carcinoma removed from right eye, PATIENT STATES PRE DIABETIC, SEASONAL ALLERGIES History of Any Multi-Drug Resistant Organisms: None Reported Additional Past Surgical History / Comment(s): left achilles tendon repair, eye lid lift, ABDOMINAL LAPROSCOPY Past Anesthesia/Blood Transfusion Reactions: No Reported Reaction Past Psychological History: No Psychological Hx Reported Smoking Status: Never smoker Past Alcohol Use History: Occasional Past Drug Use History: None Reported - Past Family History Mother Family Medical History: Congestive Heart Failure (CHF) Brother(s) Family Medical History: Myocardial Infarction ([place]) Additional Family Medical History / Comment(s): at age 63 from mi Sister(s) Family Medical History: Cancer, Thyroid Disorder Additional Family Medical History / Comment(s): COLON CA General Exam - General Exam Comments Initial Comments: GENERAL: Well-appearing, well-nourished and in no acute distress. HEAD: Atraumatic, normocephalic. EYES: Pupils equal round and reactive to light, extraocular movements intact, sclera anicteric, conjunctiva are normal. Patient has a 1 cm laceration to her right upper eyelid. Patient also has an abrasion/bruising injury underneath her right eye from her glasses. Patient has ecchymosis covering her entire upper eyelid and underneath her lower eyelid. ENT: TMs normal, nares patent, no septal hematoma, oropharynx clear without exudates. Moist mucous membranes. No signs of terrell sign behind the right ear. Patient has a 1 cm vertical laceration to the right side of her upper lip. NECK: Normal range of motion, supple without lymphadenopathy or JVD. LUNGS: Breath sounds clear to auscultation bilaterally and equal. No wheezes rales or rhonchi. HEART: Regular rate and rhythm without murmurs, rubs or gallops. ABDOMEN: Soft, nontender, normoactive bowel sounds. No guarding, no rebound. No masses appreciated. : Deferred EXTREMITIES: Normal range of motion, no pitting or edema. No clubbing or cyanosis. Patient has a mild abrasion to the anterior aspect of her right knee. Patient has full range of motion. NEUROLOGICAL: Cranial nerves II through XII grossly intact. Normal speech, normal gait. PSYCH: Normal mood, normal affect. SKIN: Warm, Dry, normal turgor, no rashes or lesions noted. Limitations: no limitations Course Vital Signs 03/12/19 03/12/19 03/12/19 15:35 16:38 18:35 Temperature 97.9 F 98.3 F Pulse Rate 50 L 56 L Respiratory 18 16 16 Rate Blood Pressure 200/81 194/73 O2 Sat by Pulse 98 95 Oximetry 03/12/19 19:20 Temperature 97.6 F Pulse Rate 54 L Respiratory 16 Rate Blood Pressure 198/87 O2 Sat by Pulse 97 Oximetry Procedures - Laceration Laceration #1 Consent Obtained: verbal consent Indication: laceration Site: lip (Right upper lip) Size (cm): 0 (1.5) Description: linear, involves alfonzo border Depth: simple, single layer Anesthetic Used: lidocaine 1% Anesthesia Technique: local infiltration Amount (mls): 2 Pre-repair: irrigated extensively Type of Sutures: nylon Size of Sutures: 5-0 Number of Sutures: 4 Technique: simple, interrupted Patient Tolerated Procedure: well Laceration #2 Consent Obtained: verbal consent Indication: laceration Site: eyelid (Right upper eyelid) Size (cm): 0 (1.5) Description: linear Depth: simple, single layer Anesthetic Used: lidocaine 1% Anesthesia Technique: local infiltration Amount (mls): 2 Pre-repair: irrigated extensively Type of Sutures: nylon Size of Sutures: 5-0 Number of Sutures: 3 Technique: simple, interrupted Patient Tolerated Procedure: well Medical Decision Making - Medical Decision Making Patient is a 74-year-old female presenting after a fall. Patient tripped over a piece of cement, falling forward, hitting the right side of her face iPod Roscher. Patient's presenting with a laceration to the right side of her upper lip, laceration above her right eye as well as ecchymosis surrounding her right eye. Patient is Eliquis for A. fib. On exam patient has significant bruising surrounding the right orbit, pain with palpation. Patient has a 1.5 cm laceration to the upper right lip as well as a 1.5 cm laceration to the upper right eyelid. There is no signs of basilar skull fracture including raccoon eye, Terrell sign, septal hematoma. Patient does have ecchymosis on the upper eyelid of the right eye but is covering the entire area. Patient's pain has been a 2/10 the entire visit. The right eye EOMs are within normal limits. Pupils are equal equal and reactive. Sensation is equal and bilateral. Facial bone CT reveals a blowout fracture of the right bony orbit with depression of the orbit floor and hemorrhage into the right maxillary sinus. CT of the brain shows no acute intracranial abnormalities. Patient's lacerations were repaired without complications. Spoke with ENT Dr. Villaseñor will follow up with patient early next week. It was discussed with patient not to blow her nose and she will also be started on Augmentin. Patient will also follow up with ophthalmology next week with Dr. Gonzalez. Return parameters were discussed with the patient and she verbalized understanding. Case discussed with Dr. Andrea. Disposition Clinical Impression: Closed blow-out fracture of right orbit, Laceration of vermilion border of upper lip, Laceration of eyebrow, right, Fall Disposition: HOME SELF-CARE Condition: Stable Instructions (If sedation given, give patient instructions): Care For Your Stitches (ED), Laceration (ED), Facial Fracture (ED) Additional Instructions: Please return to the Emergency Department if symptoms worsen or any other concerns. Follow-up with Dr. Villaseñor (ENT) next week, as discussed. Follow-up with Dr. Daniel (Ophthalmology) next week Stitches need to be removed in 10-12 days. Prescriptions: Amoxicillin/Potassium Clav [Augmentin 875-125 Tablet] 1 tab PO BID 5 Days #10 tab Is patient prescribed a controlled substance at d/c from ED?: No Referrals: Pieter Santo MD [Primary Care Provider] - 1-2 days Abdirahman Villaseñor DO [Doctor of Osteopathic Medicine] - 1-2 days Raoul Daniel MD [STAFF PHYSICIAN] - 1-2 days
--- NOTE | 2019-03-12 16:55 | CT ---
EXAMINATION TYPE: CT brain wo con DATE OF EXAM: 03/12/2019 COMPARISON: None HISTORY: fall CT DLP: combined DLP 716.7 mGycm Automated exposure control for dose reduction was used. FINDINGS: There is cerebral cortical atrophy. There is no mass effect nor midline shift. There is no sign of in tracranial hemorrhage. The calvarium is intact. There is opacification of most of the right maxillary sinus. IMPRESSION: CEREBRAL ATROPHY. NO ACUTE INTRACRANIAL ABNORMALITY.
--- NOTE | 2019-03-12 16:58 | CT ---
EXAMINATION TYPE: CT facial bones wo con DATE OF EXAM: 03/12/2019 COMPARISON: None HISTORY: fall CT DLP: 716.7 mGycm Automated exposure control for dose reduction was used. TECHNIQUE: CT scan of the sinuses is performed without contrast, axial images are obtained, coronal r eformatted images are also reviewed. FINDINGS: There is opacification of most of the right maxillary sinus with mixed attenuation consiste nt with acute hemorrhage. There is depression of the floor of the right bony orbit 9 mm. There is her niation of the inferior rectus muscle into the right maxillary sinus. There is muscle thickening. There is intraorbital air with air bubbles seen on the medial aspect of the optic nerve. Zygomatic arches appear normal. Nasal bone is intact. There is soft tissue swelling anterior to the r ight maxilla. The mandibular ring is intact without evidence of a fracture. Temporomandibular joints appear normal. IMPRESSION: There is a blowout fracture of the right bony orbit with depression of the orbital floor and hemorrhage in the right maxillary sinus. Intraorbital air bubbles. Soft tissue swelling.
[2019-03-12 18:35] VITALS: RESP 16
[2019-03-12 19:25] VITALS: BP 198/87; PULSE 54; TEMP 97.6
== END 2019-03-12 19:28 | disposition home or self-care (01) ==
LOC: EC 15:24
DX: S02.31XA Fracture of orbital floor, right side, initial encounter for closed fracture (principal); S01.511A Laceration without foreign body of lip, initial encounter; S01.111A Laceration without foreign body of right eyelid and periocular area, initial encounter; I48.91 Unspecified atrial fibrillation; E78.5 Hyperlipidemia, unspecified; E11.9 Type 2 diabetes mellitus without complications; I10 Essential (primary) hypertension; Z79.01 Long term (current) use of anticoagulants; Z79.82 Long term (current) use of aspirin; Z79.84 Long term (current) use of oral hypoglycemic drugs; Z79.899 Other long term (current) drug therapy; Z85.828 Personal history of other malignant neoplasm of skin; W01.0XXA Fall on same level from slipping, tripping and stumbling without subsequent striking against object, initial encounter; Y93.01 Activity, walking, marching and hiking; Y92.59 Other trade areas as the place of occurrence of the external cause
CPT/HCPCS: 70486; 70450; 99283; 12011; J2001

== ENCOUNTER → 2019-08-18 | Outpatient (CLI) | payer MEDICARE ==
--- NOTE | 2019-08-18 22:14 | CONS ---
CONSULTATION DATE OF SERVICE: 08/18/2019 A 74-year-old lady who has been evaluated in the [facility] for possible obstructive sleep apnea-hypopnea syndrome. HISTORY OF PRESENT ILLNESS/SLEEP-WAKE EVALUATION: The patient's usual sleep schedule is from 11 p.m. to 6-7 a.m. Sometimes she has problems with falling asleep, although no TV in the bedroom. She usually sleeps on the side position. She has been told about snoring. She wakes up from sleep once with nocturia and sometimes episodes of dry mouth and possibly restless legs. No history of hypnagogic hallucinations, sleep paralysis, or cataplexy. [place] Sleepiness Scale is 8. The patient worries about her sleep, has problems with memory and concentration. PAST MEDICAL HISTORY: Positive for hypertension, atrial fibrillation corrected to normal sinus rhythm by cardioversion about 2 years ago, rhinitis, recent bronchitis. PAST SURGICAL HISTORY: Bilateral surgery for cataracts, right eye surgery in 2019 after trauma. MEDICATIONS: Atenolol, Eliquis, Lipitor, Losartan and hydrochlorothiazide, potassium, torsemide, trazodone, aspirin, Biotin, Citracal, vitamins, Flonase spray. SOCIAL HISTORY: Negative for smoking, Alcohol consumption occasional. FAMILY HISTORY: Hypertension, heart problems, hyperlipidemia, arthritis, bronchitis, snoring, restless legs. REVIEW OF SYSTEMS: Awakenings from sleep, symptoms of restless legs. PHYSICAL EXAM: lady without distress, BP 127/69, HR 49, RR 12, height 5 feet 2 inches, weight 167.6, body mass index 30.3, temperature 98.0. OROPHARYNX: Extremely low position of soft palate, Mallampati 4, restriction of nasal breathing. NECK: 15-1/2 inches in circumference. ABDOMEN: Slightly obese. LUNGS: Clear to percussion and to auscultation. Good air exchange. No wheezing or rhonchi. HEART: S1, S2 regular. No murmurs, gallops, or rubs. EXTREMITIES: No clubbing or cyanosis. TRICK RODEO RIDER: Awake, alert, and oriented X3. Cranial nerves 2 to 7 intact. There is no fasciculation or atrophy. noted. No focal deficits observed. IMPRESSION: 1. Snoring, awakenings from sleep with nocturia, dry mouth, extremely low position of soft palate, Mallampati 4. Obstructive sleep apnea-hypopnea syndrome. 2. Hypertension. 3. History of atrial fibrillation converted to normal sinus rhythm by cardioversion about 2 years ago. 4. History of rhinitis. 5. History of recent bronchitis. 6. Status post bilateral cataract surgery. 7. Status post right eye surgery in 2019 secondary trauma. PLAN: 1. Polysomnography for evaluation of patient's breathing during sleep. 2. CPAP/BiPAP titration if sleep study confirms obstructive sleep apnea-hypopnea syndrome. 3. Preferable position during sleep on the side. 4. No driving if patient feels any sleepiness. 5. I will see patient for follow up visit to explain results of testing and following plan. Thank you very much for referring this patient for consultation. Sincerely, Tom Daniels MD, PhD, FAASM Diplomat of [place] [employer] [employer] [facility] [place] MMODL / IJN: [id number] /
== END | disposition home or self-care (01) ==
LOC: SLEEP 13:54
PROVIDERS: ATTEND Internal Medicine
DX: G47.33 Obstructive sleep apnea (adult) (pediatric) (principal); I10 Essential (primary) hypertension; R35.1 Nocturia; Z98.890 Other specified postprocedural states; H59.89 Other postprocedural complications and disorders of eye and adnexa, not elsewhere classified; S05.8X1A Other injuries of right eye and orbit, initial encounter; Z87.39 Personal history of other diseases of the musculoskeletal system and connective tissue; Z86.79 Personal history of other diseases of the circulatory system; Z87.09 Personal history of other diseases of the respiratory system; Z79.01 Long term (current) use of anticoagulants; Z79.82 Long term (current) use of aspirin; Z79.899 Other long term (current) drug therapy; Z79.51 Long term (current) use of inhaled steroids
CPT/HCPCS: 99211

== ENCOUNTER → 2020-02-09 | Outpatient (CLI) | payer MEDICARE ==
--- NOTE | 2020-02-13 08:30 | MM ---
Reason for exam: screening (asymptomatic). Last mammogram was performed 1 year and 11 months ago. History: Patient is postmenopausal and has history of other cancer at age 66. Family history of breast cancer in maternal cousin at age 60, breast cancer in paternal cousin at age 70, and breast cancer in maternal cousin. Benign US biopsy breast VAD RT of the right breast, February 22, 2015. Took hormonal contraceptives for 6 years. Took estrogen for 5 years beginning at age 48. Took progesterone for 5 years beginning at age 48. Physical Findings: A clinical breast exam by your physician is recommended on an annual basis and results should be correlated with mammographic findings. MG 3D Screening Mammo W/Cad Bilateral CC, MLO, and XCCL view(s) were taken. Prior study comparison: February 24, 2018, bilateral MG 3d screening mammo w/cad. February 23, 2017, bilateral MG 3d screening mammo w/cad. There are scattered fibroglandular densities. Previous mammotome biopsy in the right breast. No significant changes when compared with prior studies. ASSESSMENT: Benign, BI-RAD 2 RECOMMENDATION: Routine screening mammogram of both breasts in 1 year.
== END | disposition home or self-care (01) ==
LOC: RADMAMWWP 13:48
PROVIDERS: ATTEND Internal Medicine
DX: Z12.31 Encounter for screening mammogram for malignant neoplasm of breast (principal)
CPT/HCPCS: 77063; 77067

== ENCOUNTER → 2021-03-25 | Outpatient (CLI) | payer MEDICARE ==
--- NOTE | 2021-03-27 11:00 | MM ---
Reason for exam: screening (asymptomatic). Last mammogram was performed 1 year and 1 month ago. History: Patient is postmenopausal and has history of other cancer at age 66. Family history of breast cancer in maternal cousin at age 60, breast cancer in paternal cousin at age 70, and breast cancer in maternal cousin. Benign US biopsy breast VAD RT of the right breast, February 22, 2015. Took hormonal contraceptives for 6 years. Took estrogen for 5 years beginning at age 48. Took progesterone for 5 years beginning at age 48. Physical Findings: A clinical breast exam by your physician is recommended on an annual basis and results should be correlated with mammographic findings. MG 3D Screening Mammo W/Cad Bilateral CC and MLO view(s) were taken. Prior study comparison: February 09, 2020, bilateral MG 3d screening mammo w/cad. February 24, 2018, bilateral MG 3d screening mammo w/cad. February 23, 2017, bilateral MG 3d screening mammo w/cad. There are scattered fibroglandular densities. Previous mammotome biopsy in the right breast. No significant changes when compared with prior studies. ASSESSMENT: Benign, BI-RAD 2 RECOMMENDATION: Routine screening mammogram of both breasts in 1 year.
== END | disposition home or self-care (01) ==
LOC: RADMAMWWP 13:15
PROVIDERS: ATTEND Internal Medicine
DX: Z12.31 Encounter for screening mammogram for malignant neoplasm of breast (principal); Z78.0 Asymptomatic menopausal state; Z80.3 Family history of malignant neoplasm of breast
CPT/HCPCS: 77063; 77067

== ENCOUNTER → 2021-05-02 | Outpatient (CLI) | payer MEDICARE ==
--- NOTE | 2021-05-02 18:08 | BD ---
EXAMINATION TYPE: Axial Bone Density DATE OF EXAM: 05/02/2021 COMPARISON: 2013 CLINICAL HISTORY: Postmenopausal screening Height: 61.5 Weight: 180.2 FRAX RISK QUESTIONS: Alcohol (3 or more units per day): no Family History (Parent hip fracture): no Glucocorticoids (More than 3mos): no (Ex: prednisone, prednisolone, methylprednisolone, dexamethasone, and hydrocortisone). History of Fracture in Adulthood: no Secondary Osteoporosis: 1. Type 1 Diabetes: no 2. Hyperthyroidism: no 3. Menopause before 45: no 4. Malnutrition: no 5. Chronic liver disease: no Current Tobacco Use: no RISK FACTORS HISTORY OF: Surgery to Spine/Hip(right/left)/Wrist (right/left): no Family History of Osteoporosis: yes Active: yes Diet low in dairy products/other sources of calcium: no Postmenopausal woman: yes Lost more than 2 inches in height since high school: no MEDICATIONS: bp meds, diuretic, eliquis, potassium, otc vitamins, pressure vision, Lipitor Additional History: EXAM MEASUREMENTS: Bone mineral densitometry was performed using the [employer] System. Bone mineral density as measured about the Lumbar spine is: ----- L1-L4(G/cm2): 1.027 T Score Values are as follows: ----- L2: -1.3 ----- L3: -0.3 ----- L4: -1.3 ----- L1-L4: -1.3 Bone mineral density has: decreased -3.2 % since study of: 01.26.2014 Bone mineral density about the R hip (g/cm2): 0.740 Bone mineral density about the L hip (g/cm2): 0.777 T Score values are as follows: -----R Neck: -2.1 -----L Neck: -1.9 -----R Total: -1.8 -----L Total: -1.6 Bone mineral density has: decreased -17.8 % since study of: 01.26.2014 IMPRESSION: Osteopenia (T Score between -2.5 and -1). There is slightly increased risk of fracture and the patient may be considered for treatment. Re-Screen 2-5 years. NOTE: T-SCORE=SD OF THE YOUNG ADULT MEAN.
== END | disposition home or self-care (01) ==
LOC: RADBDWWP 16:15
PROVIDERS: ATTEND Internal Medicine
DX: M85.89 Other specified disorders of bone density and structure, multiple sites (principal); Z78.0 Asymptomatic menopausal state
CPT/HCPCS: 77080

== ENCOUNTER → 2021-07-05 | Outpatient (CLI) | payer MEDICARE ==
--- NOTE | 2021-07-05 14:36 | XR ---
EXAMINATION TYPE: XR chest 2V DATE OF EXAM: 07/05/2021 COMPARISON: Chest x-ray 11/03/2016 HISTORY: J 38, bronchitis TECHNIQUE: Frontal and lateral views of the chest are obtained. FINDINGS: There is no focal air space opacity, pleural effusion, or pneumothorax seen. The cardiac silhouette size is stable, enlarged. The aorta is dense. Prominent lung volume with increased retro sternal airspace, flattening the hemidiaphragms is consistent with underlying COPD. Suspect there are coronary artery calcifications present. The osseous structures are intact. IMPRESSION: Cardiomegaly, coronary artery disease
== END | disposition home or self-care (01) ==
LOC: RADXRMAIN 11:55
PROVIDERS: ATTEND Internal Medicine
DX: J40 Bronchitis, not specified as acute or chronic (principal); I51.7 Cardiomegaly; I25.10 Atherosclerotic heart disease of native coronary artery without angina pectoris
CPT/HCPCS: 71046

== ENCOUNTER 2021-12-25 06:56 | Day surgery (SDC) | payer MEDICARE ==
[2021-12-24 11:22] VITALS: BMI 31.1
[~2021-12-25 06:56] MED LIST: ALPRAZolam 0.25 MG TAB PO PRN; ALPRAZolam 0.5 MG TAB PO PRN; ASPIRIN 325 MG TAB PO STA; NITROGLYCERIN SL TABS 0.4 MG TAB SUBLINGUAL PRN
[2021-12-25] MEDS: SODIUM CHLORIDE 0.9% 1,000 ML in EMPTY BAG 1 BAG IV SCH ×2 (07:28→14:10)
[2021-12-25] MEDS ORDERED: HEPARIN SODIUM 1,000 UN/ML (10ML VL) ONE (10:20)
[2021-12-25] MEDS: MIDAZOLAM 2 MG/2 ML VIAL IVP ONE ×3 (10:48→11:03)
[2021-12-25] MEDS ORDERED: LIDOCAINE 1% INJ 10MG/ML (30 ML VIAL-PF) SQ ONE (10:51)
[2021-12-25] MEDS: HEPARIN SODIUM 1,000 UN/ML (10ML VL) IVP ONE ×2 (10:58→11:32)
[2021-12-25] MEDS ORDERED: fentaNYL (PF) 50 MCG/ML 2 ML AMP ONE (11:10)
[2021-12-25] MEDS ORDERED: fentaNYL (PF) 50 MCG/ML 2 ML AMP IVP ONE (11:13)
[2021-12-25] MEDS ORDERED: CLOPIDOGREL 75 MG TAB ONE (11:18)
[2021-12-25] MEDS ORDERED: CLOPIDOGREL 75 MG TAB PO ONE (11:22)
[2021-12-25] MEDS ORDERED: NITROGLYCERIN 1000MCG/10ML SYRINGE INTRACORON ONE (11:39)
[2021-12-25] MEDS ORDERED: IOPAMIDOL-370 100ML BTL INJ ONE (11:41)
[2021-12-25] MEDS ORDERED: RX INFO: IV CONTRAST WAS GIVEN 1 EACH MISC MISCELLANE PRN (11:52)
--- NOTE | 2021-12-25 12:17 | PTCA ---
PERCUTANEOUSTRANS CORORONARY ANGIOGRAPHY PTCA REPORT: PROCEDURE: 1. Orbital atherectomy and stenting with a drug-eluting stent of mid LAD. 2. Percutaneous transluminal coronary angioplasty and stenting of PLV branch of dominant RCA. PERFORMED BY: Dr. Jay Schaefer. Moderate conscious sedation time was 56 minutes. Patient was administered Versed and fentanyl. Oxygen saturation, hemodynamics and EKG were monitored closely. CLINICAL INFORMATION: Mrs. Danielle Horton is a 76-year-old lady with a known history of chronic atrial fibrillation, hypertension, hyperlipidemia. She had a recent cardiac cath and transesophageal echocardiogram which revealed moderate MR and significant mid LAD calcified lesion of about 80% to 90% and also a PLV lesion of 85% to 90%. She was brought in for staged intervention. She has also chronic kidney disease, creatinine of 1.5, and her today was about 96 mL of contrast. Risks, benefits and options were explained. PROCEDURE NOTE: Under local anesthesia and strict aseptic precautions, a 6-Romansh introducer was placed in the right femoral artery. I used a JL4 guide catheter to cannulate the left coronary artery. A Nitinol orbital atherectomy wire was used to cross the lesion. Wire was kept distally. I performed orbital atherectomy of the mid LAD lesion. Three passes were made at a low speed and one pass at high speed. Subsequently I dilated over the same wire with a 2.5 NC Trek balloon of 15 mm length. I then deployed a 15 mm long 3.25 caliber Xience stent at 12 atmospheres. Patient did not have chest pain but had mild precordial ST elevation. Excellent angiographic result was achieved without complication. Subsequently I turned my attention to the PLV branch of RCA. I used a standard right [place] guide catheter and a run-through wire. The wire was advanced and kept in the distal aspect of the PLV branch. A 2.5 caliber 8 mm NC Trek balloon was used to pre-dilate the lesion. I then deployed a 2.5 caliber 8 mm long Xience stent at 11 atmospheres. Patient did not have any chest pain or EKG changes. Excellent angiographic result was achieved without complication. The sheath was taken out and Angio-Seal device used to secure hemostasis. Patient received 5500 units of heparin and ACT was 277. Subsequently an additional 1000 units of heparin was given after 30 minutes. Excellent angiographic result without complication was achieved of both the vessels. This patient will be on a combination of Plavix and Eliquis indefinitely, for a minimum of at least 12 months. She will also take aspirin for the next two weeks, and aspirin will then be discontinued. NAZ / MARCELN: [id number] /
[2021-12-25] MEDS ORDERED: ACETAMINOPHEN TAB 325 MG TAB ONE (13:11)
[2021-12-25] MEDS ORDERED: ACETAMINOPHEN TAB 325 MG TAB PO PRN (13:13)
[2021-12-25] MEDS: SODIUM CHLORIDE 0.9% 1,000 ML IV SCH (14:10)
[2021-12-25] MEDS ORDERED: amLODIPine 5 MG TAB PO STA (15:13)
[2021-12-25] MEDS: atenoloL 50 MG TAB PO SCH (20:23)
[2021-12-26] MEDS: SODIUM CHLORIDE 0.9% 1,000 ML IV SCH (01:00)
[2021-12-26 08:02] VITALS: BP 148/75; PULSE 81; RESP 18; TEMP 98.7
[2021-12-26] MEDS: SODIUM CHLORIDE 0.9% 1,000 ML in EMPTY BAG 1 BAG IV SCH ×2 (08:12→08:13)
[2021-12-26] MEDS ORDERED: CLOPIDOGREL 75 MG TAB PO SCH (09:00)
[2021-12-26] MEDS ORDERED: hydroCHLOROthiazide 25 MG TAB PO SCH (09:00)
[2021-12-26] MEDS ORDERED: APIXABAN 5 MG TAB PO SCH (09:00)
[2021-12-26] MEDS ORDERED: NON FORMULARY DRUG (Valsartan/Hydrochlorothiazide [Valsartan-Hctz 320-25 Mg Tab] 1 EACH Ta PO SCH (09:00)
[2021-12-26] MEDS ORDERED: VALSARTAN 160 MG TAB PO SCH (09:00)
[2021-12-26] MEDS ORDERED: ASPIRIN 81 MG PO SCH (09:00)
[2021-12-26] MEDS ORDERED: ATORVASTATIN 80 MG TAB PO SCH (09:00)
[2021-12-26] MEDS: atenoloL 50 MG TAB PO SCH (09:09)
[2021-12-26 09:56] LABS: HCT 38.1 % (34.0-46.0); HGB 12.4 gm/dL (11.4-16.0); MCH 28.7 pg (25.0-35.0); MCHC 32.4 g/dL (31.0-37.0); MCV 88.4 fL (80.0-100.0); Platelet Count 157 k/uL (150-450); RBC 4.31 m/uL (3.80-5.40); RDW 14.2 % (11.5-15.5)
== END 2021-12-26 11:00 | disposition home or self-care (01) ==
LOC: CATHCVL 06:56 → 6NMEDSUR 13:11 → CATHCVL 12-26 11:00
PROVIDERS: ATTEND Internal Medicine Interventional Cardiology
DX: I25.10 Atherosclerotic heart disease of native coronary artery without angina pectoris (principal); I25.84 Coronary atherosclerosis due to calcified coronary lesion; I48.20 Chronic atrial fibrillation, unspecified; I34.0 Nonrheumatic mitral (valve) insufficiency; I12.9 Hypertensive chronic kidney disease with stage 1 through stage 4 chronic kidney disease, or unspecified chronic kidney disease; E11.22 Type 2 diabetes mellitus with diabetic chronic kidney disease; N18.9 Chronic kidney disease, unspecified; Z20.822 Contact with and (suspected) exposure to COVID-19; E78.5 Hyperlipidemia, unspecified; Z82.49 Family history of ischemic heart disease and other diseases of the circulatory system; Z79.01 Long term (current) use of anticoagulants; Z79.899 Other long term (current) drug therapy; Z79.82 Long term (current) use of aspirin
CPT/HCPCS: 85027; 87635; C9600; C9602; C1760; C1887 ×2; C1725 ×2; C1769 ×4; C1894; C1724; C1874 ×2; J2250; J2001; J3010; J1644; Q9967

== ENCOUNTER → 2022-03-28 | Outpatient (CLI) | payer MEDICARE ==
--- NOTE | 2022-04-01 06:54 | MM ---
Reason for Exam: Screening (asymptomatic). Last mammogram was performed 1 year(s) and 1 month(s) ago. Patient History: Menarche at age 10. First Full-Term at age 25. Postmenopausal. Other cancer, age 66. Estrogen for 5 years from age 48 until age 53. Progesterone for 5 years from age 48 until age 53. Patient used Hormonal Contraceptives for 6 years. 02/22/2015, Benign Core Biopsy on the right side. Paternal cousin had breast cancer, age 70. Maternal cousin had breast cancer. Maternal cousin had breast cancer, age 60. Risk Values: Mary Lou 5 year model risk: 2.2%. NCI Lifetime model risk: 3.7%. Prior Study Comparison: 02/24/2018 Bilateral Screening Mammogram, [facility] WITH [facility]. 02/09/2020 Bilateral Screening Mammogram, [facility]ED WITH [facility]. 03/25/2021 Bilateral Screening Mammogram, [facility]ED WITH [facility]. Tissue Density: There are scattered fibroglandular densities. Findings: Analyzed By CAD. Mammotome biopsy clip right breast redemonstrated. There are occasional scattered benign-appearing round along with linear and vascular calcifications in the bilateral breasts. There is no suspicious group of microcalcifications or new suspicious mass in either breast. Overall Assessment: Benign, BI-RAD 2 Management: Screening Mammogram of both breasts in 1 year. A clinical breast exam by your physician is recommended on an annual basis and results should be correlated with mammographic findings. Electronically signed and approved by: Raoul Guajardo M.D.
== END | disposition home or self-care (01) ==
LOC: RADMAMWWP 12:52
PROVIDERS: ATTEND Internal Medicine
DX: Z12.31 Encounter for screening mammogram for malignant neoplasm of breast (principal); Z78.0 Asymptomatic menopausal state; Z85.89 Personal history of malignant neoplasm of other organs and systems; Z80.3 Family history of malignant neoplasm of breast; Z98.890 Other specified postprocedural states
CPT/HCPCS: 77063; 77067

== ENCOUNTER → 2023-05-25 | Outpatient (CLI) | payer MEDICARE ==
--- NOTE | 2023-05-25 13:28 | BD ---
EXAMINATION TYPE: Axial Bone Density DATE OF EXAM: 05/25/2023 CLINICAL HISTORY: 78 years old Female. ICD-10 CODE: M85.851 OTH DISRD OF BONE DENSITY AND STRUCTURE, R Height: 61 Weight: 165.2 FRAX RISK QUESTIONS: Alcohol (3 or more units per day): no Family History (Parent hip fracture): no Glucocorticoids (More than 3mos): no History of Fracture in Adulthood: no Secondary Osteoporosis: 1. Type 1 Diabetes: no 2. Hyperthyroidism: no 3. Menopause before 45: no 4. Malnutrition: no 5. Chronic liver disease: no Rheumatoid Arthritis: no Current Tobacco Use: no RISK FACTORS HISTORY OF: Hip Fracture (Right/Left): no Spine Fracture: no History of Wrist Fracture: no Surgery to Spine/Hip(right/left)/Wrist (right/left): no Family History of Osteoporosis: yes Active: no Diet low in dairy products/other sources of calcium: no Postmenopausal woman: no Take estrogen and/or progesterone medications: no Lost more than 2 inches in height since high school: no Frequent falls: no Poor Health: no Hyperparathyroidism: no Adrenal Insufficiency: no MEDICATIONS: Prednisone or other steroids no Thyroid Medications: no Osteoporosis Medications: no Additional Medications: Multi Vit., BP Meds, Cholesterol Meds, Biotin Additional History: EXAM MEASUREMENTS: Bone mineral densitometry was performed using the [employer] System. Bone mineral density as measured about the Lumbar spine is: ----- L1-L4(G/cm2): 0.977 T Score Values are as follows: ----- L1: -2.5 ----- L2: -1.7 ----- L3: -1.7 ----- L4: -0.9 ----- L1-L4: -1.7 Z Score Values are as follows: ----- L1: -1.0 ----- L2: -0.2 ----- L3: -0.2 ----- L4: 0.6 ----- L1-L4: -0.2 Bone mineral density has: decreased -4.9 % since study of: 05/02/2021 Bone mineral density about the R hip (g/cm2):0.693 Bone mineral density about the L hip (g/cm2): 0.750 T Score values are as follows: -----R Neck: -2.7 -----L Neck: -2.0 -----R Total: -2.5 -----L Total: -2.0 Z Score values are as follows: -----R Neck: -0.7 -----L Neck: 0.0 -----R Total: -0.7 -----L Total: -0.3 Bone mineral density has: decreased -9.0 % since study of: 05/02/2021 FRAX%s: The graph provided illustrates a 20.3% chance for a major osteoporotic fx and a 7.3% chance f or the hips probability for fx in 10 years time. IMPRESSION: Osteoporosis (T Score less than -2.5). There is increased fracture risk and therapy is usually indicated based on age. Re-Screen 1-2 years. NOTE: T-SCORE=SD OF THE YOUNG ADULT MEAN.
== END | disposition home or self-care (01) ==
LOC: RADBDWWP 12:38
PROVIDERS: ATTEND Internal Medicine
DX: M81.0 Age-related osteoporosis without current pathological fracture (principal); M85.89 Other specified disorders of bone density and structure, multiple sites
CPT/HCPCS: 77080

== ENCOUNTER 2023-11-24 06:55 | Day surgery (SDC) | payer MEDICARE ==
[2023-11-23 09:16] VITALS: BMI 28.3
[2023-11-24] MEDS: LACTATED RINGERS 1,000 ML IV SCH (07:44)
[2023-11-24 07:59] VITALS: TEMP 96.7
[2023-11-24] MEDS ORDERED: PROPOFOL 10 MG/ML 20 ML VIAL IV ONE (08:27)
--- NOTE | 2023-11-24 08:46 | P.PCN ---
Date of Procedure: 11/24/23 Procedure(s) Performed: BRIEF HISTORY: Patient is a 78-year-old pleasant white female scheduled for an elective colonoscopy as a part of screening for colon cancer/positive Cologuard. Her sister diagnosed with colon cancer at age 70. PROCEDURE PERFORMED: Colonoscopy. PREOPERATIVE DIAGNOSIS: Screening for colon cancer/positive Cologuard/family history of colon cancer. IV sedation per Anesthesia. PROCEDURE: After informed consent was obtained, the patient, was brought into the endoscopy unit. IV sedation was administered by Anesthesia under continuous monitoring. Digital rectal examination was normal. Initially the Olympus CF-160 flexible video colonoscope was then inserted in the rectum, gradually advanced into the cecum without any difficulty. Careful examination was performed as the scope was gradually being withdrawn. Ileocecal valve and the appendiceal orifice were visualized and appeared normal. Prep was excellent. Mucosa of the cecum, ascending colon, transverse colon, descending colon, sigmoid colon, and rectum appeared normal. Moderate sigmoid diverticulosis retroflexion was performed in the rectum and grade 2 internal hemorrhoids were seen. The patient tolerated the procedure well. IMPRESSION: Normal-appearing colon from rectum to cecum no evidence of colon neoplasia. Grade 2 internal hemorrhoids Moderate sigmoid diverticulosis RECOMMENDATIONS: Findings of this examination were discussed with the patient as well as her family. She was advised to be on-with identifiable supplements on a regular basis..
[2023-11-24 09:34] VITALS: BP 175/82; PULSE 71
[2023-11-24 09:35] VITALS: RESP 18
== END 2023-11-24 09:36 | disposition home or self-care (01) ==
LOC: ORWHC2ENDO 06:55
PROVIDERS: ATTEND Internal Medicine Gastroenterology
DX: K57.30 Diverticulosis of large intestine without perforation or abscess without bleeding (principal); K64.1 Second degree hemorrhoids; I48.91 Unspecified atrial fibrillation; I10 Essential (primary) hypertension; E78.5 Hyperlipidemia, unspecified; Z95.5 Presence of coronary angioplasty implant and graft; Z79.01 Long term (current) use of anticoagulants; Z79.82 Long term (current) use of aspirin; I25.10 Atherosclerotic heart disease of native coronary artery without angina pectoris; Z80.0 Family history of malignant neoplasm of digestive organs; Z79.899 Other long term (current) drug therapy; Z98.890 Other specified postprocedural states
CPT/HCPCS: 45378; J2704

== ENCOUNTER → 2024-06-16 | Outpatient (CLI) | payer MEDICARE ==
[2024-06-16 16:00] LABS: ALT 67 U/L (8-44); AST 55 U/L (13-35); Albumin 4.1 g/dL (3.8-4.9); Albumin/Globulin Ratio 1.71 Ratio (1.60-3.17); Alkaline Phosphatase 99 U/L (41-126); BUN/Creat Ratio 30.16 Ratio (12.00-20.00); Blood Urea Nitrogen 57.3 mg/dL (9.0-27.0); Carbon Dioxide 27.3 mmol/L (21.6-31.8); Chloride 101 mmol/L (96-109); Globulin 2.4 g/dL (1.6-3.3); Glucose 158 mg/dL (70-110); Magnesium 2.1 mg/dL (1.5-2.4); Phosphorus 3.3 mg/dL (2.4-5.1); Potassium 3.4 mmol/L (3.5-5.5); Sodium 141 mmol/L (135-145); Total Bilirubin 0.7 mg/dL (0.3-1.2); Total Protein 6.5 g/dL (6.2-8.2)
[2024-06-16 16:01] LABS: Basophils # (A) 0.01 X 10*3/uL (0.00-0.10); Basophils % (A) 0.1 %; Eosinophils # (A) 0.19 X 10*3/uL (0.04-0.35); Eosinophils % (A) 2.7 %; HCT 38.2 % (37.2-46.3); HGB 12.8 g/dL (12.0-15.0); Lymphocytes # (A) 1.33 X 10*3/uL (0.90-5.00); Lymphocytes % (A) 18.9 %; MCH 29.6 pg (27.0-32.0); MCHC 33.5 g/dL (32.0-37.0); MCV 88.4 FL (80.0-97.0); Mean Platelet Volume 10.2 FL (9.5-12.2); Monocytes # (A) 0.37 X 10*3/uL (0.20-1.00); Monocytes % (A) 5.3 %; NRBC Per 100 WBC 0 X 10*3/uL (0.00-0.01); Neutrophils % (A) 72.7 %; Platelet Count 186 X 10*3/uL (140-440); RBC 4.32 X 10*6/uL (4.10-5.20); RDW 12.8 % (11.5-14.5); WBC 7.02 X 10*3/uL (4.50-10.00)
[2024-06-16 16:49] LABS: Appearance,Urine Cloudy (Clear); Bilirubin,Urine Negative (Negative); Blood,Urine Negative (Negative); Color,Urine Yellow (Yellow); Ketones,Urine Negative (Negative); Nitrite,Urine Negative (Negative); PH, Urine 5.5; Specific Gravity,Urine 1.012 (1.001-1.030); Urobilinogen,Urine 0.2 E.U./DL
[2024-06-16 17:20] LABS: Bacteria,Urine 3+ (None Seen)
[2024-06-16 18:15] LABS: Urine Creatinine 83.9 mg/dL (28.0-217.0)
== END | disposition home or self-care (01) ==
LOC: LABWHC1 09:02
PROVIDERS: ATTEND Internal Medicine
DX: N18.4 Chronic kidney disease, stage 4 (severe) (principal)
CPT/HCPCS: 36415; 80053; 81001; 82043; 82570; 83735; 84100; 85025

== ENCOUNTER → 2024-07-12 | Outpatient (CLI) | payer MEDICARE ==
--- NOTE | 2024-07-12 15:07 | US ---
EXAMINATION TYPE: US kidneys/renal and bladder DATE OF EXAM: 07/12/2024 COMPARISON: NONE CLINICAL INDICATION: Female, 79 years old with history of N17.9 ACUTE KIDNEY FAILURE; MARÍA TECHNIQUE: Grayscale imaging of the bilateral kidneys and urinary bladder: FINDINGS: EXAM MEASUREMENTS: Right Kidney: 11.4 x 3.5 x 4.8 cm Left Kidney: 10.0 x 3.1 x 4.0 cm Right Kidney: No evidence of hydro, hypoechoic lesion upper pole= 2.1 x 1.6 x 1.8 cm, cystic lesion m id/medial= 2.0 x 1.5 x 1.5 cm Left Kidney: No evidence of hydro, two cystic lesions lower pole 1)- 2.6 x 2.0 x 2.3 cm, 2)- 2.3 x 1. 6 x 2.2 cm Bladder: wnl Bilateral Jets seen: Only right jet visualized No hydronephrosis or nephrolithiasis. Renal cortical echogenicity maintained. Mild renal cortical thi nning. IMPRESSION: 1. No hydronephrosis or nephrolithiasis. Mild renal cortical thinning suggest chronic medical renal d isease.. 2. There are multiple benign Bosniak classification bilateral renal cysts. However, there is a upper pole right renal lesion measuring 2.1 cm which does not meet the criteria for simple cyst. Recommend follow-up CT scan. [facility], , 07/12/2024 3:04 PM
== END | disposition home or self-care (01) ==
LOC: RADUSWWP 14:00
PROVIDERS: ATTEND Internal Medicine
DX: N17.9 Acute kidney failure, unspecified (principal); N28.1 Cyst of kidney, acquired
CPT/HCPCS: 76770

== ENCOUNTER → 2024-08-01 | Outpatient (CLI) | payer MEDICARE ==
[2024-08-01] MEDS: DENOSUMAB 60 MG/ML 1 ML SYRINGE SQ NR (13:55)
[2024-08-01 14:01] VITALS: BP 162/82; PULSE 61; RESP 16; TEMP 97.4
== END ==
LOC: PROCWHC3 13:47
PROVIDERS: ATTEND Internal Medicine
DX: M81.0 Age-related osteoporosis without current pathological fracture (principal)
CPT/HCPCS: 96372; J0897

== ENCOUNTER → 2024-11-01 | Outpatient (CLI) | payer MEDICARE ==
--- NOTE | 2024-11-01 12:58 | XR ---
EXAMINATION TYPE: XR chest 2V DATE OF EXAM: 11/01/2024 12:00 PM COMPARISON: 07/05/2021 CLINICAL INDICATION: Female, 79 years old with history of I50.31, I11.0, TECHNIQUE: XR chest 2V view(s) obtained. FINDINGS: The heart size is normal. The pulmonary vasculature is somewhat prominent. Small bilateral pleural effusions are present. Some adjacent compressive atelectasis present. IMPRESSION: 1. Correlate for volume overload. 2. Bilateral small pleural effusions with adjacent compressive atelectasis. [facility], , 11/01/2024 12:56 PM
== END | disposition home or self-care (01) ==
LOC: RADXRMAIN 11:34
PROVIDERS: ATTEND Internal Medicine
DX: I11.0 Hypertensive heart disease with heart failure (principal); I50.31 Acute diastolic (congestive) heart failure; J90 Pleural effusion, not elsewhere classified; J98.11 Atelectasis
CPT/HCPCS: 71046

== ENCOUNTER → 2025-01-30 | Outpatient (CLI) | payer MEDICARE ==
[2025-01-30 14:05] VITALS: BP 94/57; PULSE 66; RESP 16; TEMP 97.2
[2025-01-30] MEDS: DENOSUMAB 60 MG/ML 1 ML SYRINGE SQ NR (14:05)
== END ==
LOC: PROCWHC3 13:46
PROVIDERS: ATTEND Internal Medicine
DX: M81.0 Age-related osteoporosis without current pathological fracture (principal)
CPT/HCPCS: 96372; J0897